=== PATIENT | female | born 1985 ===

== ENCOUNTER 2022-10-04 13:58 | Emergency (ER) | payer OTHER, SELFPAY ==
--- NOTE | ~2022-10-04 | XR_ITS ---
EXAMINATION: XR CHEST CLINICAL INFORMATION: Cough, shortness of breath COMPARISON: None TECHNIQUE: 2 views of the chest were obtained. FINDINGS: Examination at low lung volumes with some compression of parenchymal markings. Small linear atelectatic change observed in the left midlung. No pleural effusions or dominant consolidations. Pulmonary vascularity appears unremarkable. XR/XR chest 2V IMPRESSION: Small linear atelectatic changes noted left midlung. No dominant consolidations or effusions.
[2022-10-04 14:37] VITALS: BP 155/100; PULSE 102; RESP 24; TEMP 36.3; O2SAT 95; BMI 46.3
--- NOTE | 2022-10-04 14:38 | ECG_ITS ---
Test Reason : SOB Blood Pressure : / mmHG Vent. Rate : 102 BPM Atrial Rate : 102 BPM P-R Int : 134 ms QRS Dur : 076 ms QT Int : 340 ms P-R-T Axes : 051 062 032 degrees QTc Int : 443 ms Sinus tachycardia Cannot rule out Anterior infarct , age undetermined Abnormal ECG No previous ECGs available Referred By: Renita Contreras Electronically Signed By:JENNIFER BARNES
--- NOTE | 2022-10-04 14:40 | ED_ITS ---
HPI - SOB/Dyspnea General Chief Complaint: Dyspnea <DOUG Gomes - Last Filed: 10/04/22 14:43> Stated Complaint: Diff breathing/Cough <DOUG Gomes - Last Filed: 10/04/22 14:43> Time Seen by Provider: 10/04/22 20:24 <DOUG Gomes - Last Filed: 10/04/22 14:43> Source: patient <Chepe Dalton MD - Last Filed: 10/04/22 20:46> Mode of arrival: ambulatory <Chepe Dalton MD - Last Filed: 10/04/22 20:46> Limitations: no limitations <Chepe Dalton MD - Last Filed: 10/04/22 20:46> History of Present Illness HPI Narrative: 37-year-old female presents with cough, shortness of breath for 3 days. Symptoms have been getting progressively worse. She denies fever but does feel hot at night sometimes. She denies any chest pain. There is no clear relieving or exacerbating features. She does have asthma and uses a an inhaler which has been somewhat helpful but not significantly so. She has not tried any additional medications. She has a mucus production with yellow phlegm no blood. She denies any lower extremity edema, orthopnea, PND. She does describe wheezing which is moderate nature. <Chepe Dalton MD - Last Filed: 10/04/22 20:46> MD elicited complaint: shortness of breath, cough and asthma attack <Chepe Dalton MD - Last Filed: 10/04/22 20:46> Pertinent past history: asthma <Chepe Dalton MD - Last Filed: 10/04/22 20:46> Onset (ago): day(s) (3) <Chepe Dalton MD - Last Filed: 10/04/22 20:46> Timing: intermittent <Chepe Dalton MD - Last Filed: 10/04/22 20:46> Severity: moderate <Chepe Dalton MD - Last Filed: 10/04/22 20:46> Exacerbating factors: nothing <Chepe Dalton MD - Last Filed: 10/04/22 20:46> Relieving factors: bronchodilators <Chepe Dalton MD - Last Filed: 10/04/22 20:46> Known history of: asthma <Chepe Dalton MD - Last Filed: 10/04/22 20:46> Associated symptoms: cough, wheezing and sputum production <Chepe Dalton MD - Last Filed: 10/04/22 20:46> Treatment prior to arrival: bronchodilator <Chepe Dalton MD - Last Filed: 10/04/22 20:46> Related Data Home Medications: Previous Rx's Medication Instructions Recorded albuterol sulfate 90 mcg/actuation 2 puff inhalation Q4-6H PRN 10/04/22 aerosol inhaler shortness of breath or wheezing #8.5 grams azithromycin 250 mg tablet 250 mg PO DAILY 4 days #4 tabs 10/04/22 prednisone 20 mg tablet 20 mg PO DAILY #5 tabs 10/04/22 <DOUG Gomes - Last Filed: 10/04/22 14:43> Allergies/Adverse Reactions: Allergies Allergy/AdvReac Type Severity Reaction Status Date / Time No Known Allergies Allergy Verified 10/04/22 14:38 <DOUG Gomes - Last Filed: 10/04/22 14:43> Review of Systems Review of Systems: CONSTITUTIONAL: Denies weight loss, fever and chills. HEENT: Denies changes in vision and hearing. RESPIRATORY: + SOB and cough. CV: Denies palpitations no CP. GI: Denies abdominal pain, nausea, vomiting and diarrhea. : Denies dysuria and urinary frequency. MSK: Denies myalgia and joint pain. SKIN: Denies rash and pruritus. NEUROLOGICAL: Denies headache and syncope. PSYCHIATRIC: Denies recent changes in mood. Denies anxiety and depression. All other ROS are negative unless in HPI <Chepe Dalton MD - Last Filed: 10/04/22 20:46> [facility] Social History Social History: Social History Smoked in Last 30 Days: Yes Use of substances other than those prescribed or required for medical reasons: No Advance Directives: No Advance Directives Information Provided: No Patient : No <DOUG Gomes - Last Filed: 10/04/22 14:43> Physical Exam Vital Signs: Vital Signs: Last Vital Signs Temp 98.5 F 10/04/22 19:51 Pulse 90 10/04/22 19:51 Resp 24 H 10/04/22 19:51 BP 119/65 10/04/22 19:51 Pulse Ox 96 10/04/22 19:51 O2 Del Method 10/04/22 19:51 BMI result Body Mass Index 46.3 <DOUG Gomes - Last Filed: 10/04/22 14:43> Vital Signs: Last Vital Signs Temp 98.5 F 10/04/22 19:51 Pulse 90 10/04/22 19:51 Resp 24 H 10/04/22 19:51 BP 119/65 10/04/22 19:51 Pulse Ox 96 10/04/22 19:51 O2 Del Method 10/04/22 19:51 BMI result Body Mass Index 46.3 <Chepe Dalton MD - Last Filed: 10/04/22 20:46> GEN: Well developed, no acute distress, alert, oriented HEENT: Normocephalic, atraumatic, normal external ears, nose appears normal, no oropharyngeal edema or exudates Eyes: Normal to appearance Neck: Supple, no lymphadenopathy Respiratory: Talks in complete sentences, no respiratory distress, clear to auscultation bilaterally Cardiovascular: Regular rate and rhythm, no murmurs rubs or gallops Abdomen: Soft, nontender, nondistended, no guarding, no rebound Back: No CVA tenderness Extremities: No clubbing cyanosis or edema Neurologic: No focal neurologic deficits, cranial nerves 2-12 intact, strength is 5/5 bilaterally, gait normal Skin: No rash <Chepe Dalton MD - Last Filed: 10/04/22 20:46> Course Course Course Narrative: RME - 37-year-old female with history of asthma, obesity who presents to the ER for evaluation of worsening shortness of breath for the last 4 days. She reports increased coughing associated with pain in her chest and back. She reports minimal relief with her albuterol. Tachycardic 100-110 in triage, mild dyspnea. SPO2 95% with scattered inspiratory wheezes. Plan: CXR, labs, EKG, COVID swab. Needs albuterol treatment. <DOUG Gomes - Last Filed: 10/04/22 14:43> Reevaluation(s) Reevaluation #1: Torque up is complete. Chest x-ray was read by Radiology as no acute infiltrates however, I do see a small infiltrate on the left lower lobe that was approximately 1-2 cm in diameter. This could be either vascular, pneumonia, atelectasis. Patient's vital signs are good. She has nonlabored respirations. She has very slight wheezing on expiration otherwise her examination is normal. At this time, will start patient on antibiotics, steroids and also prescribed an inhaler. Patient is comfortable with this discharge plan. <Chepe Dalton MD - Last Filed: 10/04/22 20:46> Time: 20:42 <Chepe Dalton MD - Last Filed: 10/04/22 20:46> Medical Decision Making Medical Decision Making MDM Narrative: 29-year-old female with history of asthma presents with cough, phlegm, shortness of breath and wheezing. Examination revealed nauseous saturation 95% on room air. She has nonlabored respirations. Chest x-ray will be ordered, laboratory analysis will be ordered. COVID testing has also been patient appears overall well and is likely to be discharged. <Chepe Dalton MD - Last Filed: 10/04/22 20:46> Differential Diagnosis Differential Diagnoses: The differential diagnosis associated with the presentation includes (Bronchitis, pneumonia, CHF, asthma exacerbation, dyspnea) <Chepe Dalton MD - Last Filed: 10/04/22 20:46> Admission/Observation Consideration of admission/observation: Escalation of care including admission/observation considered <Chepe Dalton MD - Last Filed: 10/04/22 20:46> Lab Data [facility] Lab Attestation statement: I reviewed the patient's lab results. <Chepe Dalton MD - Last Filed: 10/04/22 20:46> Result Diagrams: 10/04/22 16:39 10/04/22 16:39 <DOUG Gomes - Last Filed: 10/04/22 14:43> Labs: Lab Results 10/04/22 10/04/22 10/04/22 Range/Units 16:39 16:39 16:39 WBC 13.9 H (4.8-10.8) X10*3/uL RBC 4.87 (4.20-5.50) X10*6/uL Hgb 13.6 (12.0-16.0) g/dl Hct 40.4 (37.0-47.0) % MCV 83.0 (80.0-98.0) fL MCH 27.9 (27.0-33.0) pg MCHC 33.7 (31.0-35.0) g/dl RDW 12.9 (11.0-16.0) % Plt Count 390 (160-400) X10*3/uL MPV 8.8 L (9.4-12.3) fL Immature Gran % (Auto) 0.6 H (0.0-0.4) % Neut % (Auto) 60.7 (45-73) % Lymph % (Auto) 31.9 (20-40) % Morrison % (Auto) 5.9 (2-11) % Eos % (Auto) 0.7 (0-4) % Baso % (Auto) 0.2 (0-2) % Lymph # (Auto) 4.4 (1.2-4.9) X10*3/uL Morrison # (Auto) 0.8 (0.1-1.2) X10*3/uL Eos # (Auto) 0.1 (0.0-0.4) X10*3/uL Baso # (Auto) 0.0 (0.0-0.2) X10*3/uL Abs Immat Gran (auto) 0.08 H (0.00-0.03) X10*3/uL Absolute Neuts (auto) 8.4 H (2.0-8.3) x10*3/uL Absolute Nucleated RBC 0.000 (0.0-0.012) X10*3/uL Nucleated RBC % (auto) 0.0 (0.0-0.2) /100WBC Sodium 138 (135-145) mmol/L Potassium 4.2 (3.3-5.1) mmol/L Chloride 105 (96-108) mmol/L Carbon Dioxide 24 (22-29) mmol/L Anion Gap 13 (12-20) BUN 13 (9-16) mg/dL Creatinine 0.76 (0.5-1.4) mg/dL Estim Creat Clear Calc 129.5 Estimated GFR > 60 Random Glucose 167 H (60-115) mg/dL Calcium 9.2 (8.4-10.2) mg/dL Magnesium 1.9 (1.6-2.6) mg/dL Total Bilirubin 0.4 (0.0-1.0) mg/dL Direct Bilirubin < 0.2 (0.0-0.5) mg/dL AST 25 (5-31) U/L ALT 14 (0-31) U/L Alkaline Phosphatase 68 (39-117) U/L Total Protein 6.9 (6.5-8.0) g/dL Albumin 4.0 (3.5-5.0) g/dL COVID-19 (SAILAJA) Negative (Negative) COVID-19 Clin Com See Note <DOUG Gomes - Last Filed: 10/04/22 14:43> Lab Results 10/04/22 10/04/22 10/04/22 Range/Units 16:39 16:39 16:39 WBC 13.9 H (4.8-10.8) X10*3/uL RBC 4.87 (4.20-5.50) X10*6/uL Hgb 13.6 (12.0-16.0) g/dl Hct 40.4 (37.0-47.0) % MCV 83.0 (80.0-98.0) fL MCH 27.9 (27.0-33.0) pg MCHC 33.7 (31.0-35.0) g/dl RDW 12.9 (11.0-16.0) % Plt Count 390 (160-400) X10*3/uL MPV 8.8 L (9.4-12.3) fL Immature Gran % (Auto) 0.6 H (0.0-0.4) % Neut % (Auto) 60.7 (45-73) % Lymph % (Auto) 31.9 (20-40) % Morrison % (Auto) 5.9 (2-11) % Eos % (Auto) 0.7 (0-4) % Baso % (Auto) 0.2 (0-2) % Lymph # (Auto) 4.4 (1.2-4.9) X10*3/uL Morrison # (Auto) 0.8 (0.1-1.2) X10*3/uL Eos # (Auto) 0.1 (0.0-0.4) X10*3/uL Baso # (Auto) 0.0 (0.0-0.2) X10*3/uL Abs Immat Gran (auto) 0.08 H (0.00-0.03) X10*3/uL Absolute Neuts (auto) 8.4 H (2.0-8.3) x10*3/uL Absolute Nucleated RBC 0.000 (0.0-0.012) X10*3/uL Nucleated RBC % (auto) 0.0 (0.0-0.2) /100WBC Sodium 138 (135-145) mmol/L Potassium 4.2 (3.3-5.1) mmol/L Chloride 105 (96-108) mmol/L Carbon Dioxide 24 (22-29) mmol/L Anion Gap 13 (12-20) BUN 13 (9-16) mg/dL Creatinine 0.76 (0.5-1.4) mg/dL Estim Creat Clear Calc 129.5 Estimated GFR > 60 Random Glucose 167 H (60-115) mg/dL Calcium 9.2 (8.4-10.2) mg/dL Magnesium 1.9 (1.6-2.6) mg/dL Total Bilirubin 0.4 (0.0-1.0) mg/dL Direct Bilirubin < 0.2 (0.0-0.5) mg/dL AST 25 (5-31) U/L ALT 14 (0-31) U/L Alkaline Phosphatase 68 (39-117) U/L Total Protein 6.9 (6.5-8.0) g/dL Albumin 4.0 (3.5-5.0) g/dL COVID-19 (SAILAJA) Negative (Negative) COVID-19 Clin Com See Note <Chepe Dalton MD - Last Filed: 10/04/22 20:46> Independent Interpretation I performed an independent interpretation of an: Plain X-Ray (Possible left lower lobe infiltrate that is discoid approxim ately 2 cm which could also be discoid atelectasis) <Chepe Dalton MD - Last Filed: 10/04/22 20:46> Radiology Impression Discussion of test interpretation with radiology: I have reviewed the radiologist's reading. (IMPRESSION: Small linear atelectatic changes noted left midlung. No dominant consolidations or effusions. Dictated By:[place]oy,ThomasSigned By:<Electronically signed by Dimitri Montano in OV>10/04/22 1549) <Chepe Dalton MD - Last Filed: 10/04/22 20:46> Independent Historian Clinical information obtained from an independent historian. History obtained from or confirmed by: Spouse <Chepe Dalton MD - Last Filed: 10/04/22 20:46> Tests considered The following testing was considered but not selected: CT scan <Chepe Dalton MD - Last Filed: 10/04/22 20:46> Prescription Management I considered prescription management with: Antibiotic <Chepe Dalton MD - Last Filed: 10/04/22 20:46> Chronic Conditions Patient?s care impacted by: Other (Asthma) <Chepe Dalton MD - Last Filed: 10/04/22 20:46> Discharge Plan Discharge Clinical Impression: Bronchitis <DOUG Gomes - Last Filed: 10/04/22 14:43> Patient Disposition: Home, Self-Care <DOUG Gomes - Last Filed: 10/04/22 14:43> Instructions: How to Use a Metered-Dose Inhaler (ED), Acute Bronchitis (ED) <DOUG Gomes - Last Filed: 10/04/22 14:43> Prescriptions: New albuterol sulfate 90 mcg/actuation HFA aerosol inhaler 2 puff inhalation Q4-6H PRN (Reason: shortness of breath or wheezing) Qty: 8.5 0RF azithromycin 250 mg tablet 250 mg PO DAILY 4 Days Qty: 4 0RF Rx Instructions: start on day 2 of therapy prednisone 20 mg tablet 20 mg PO DAILY Qty: 5 0RF <DOUG Gomes - Last Filed: 10/04/22 14:43> Print Language: Azeri <DOUG Gomes - Last Filed: 10/04/22 14:43>
--- NOTE | 2022-10-04 16:42 | MHC.EDTECH ---
pt blood drawn and covid swab collected and sent to lab .
[2022-10-04 16:45] LABS: MANUAL DIFF FLAG NO
[2022-10-04 16:46] LABS: Basophils Percent Auto 0.2 % (0-2); Eosinophils Absolute Auto 0.1 X10*3/uL (0.0-0.4); Eosinophils Percent Auto 0.7 % (0-4); Hematocrit 40.4 % (37.0-47.0); Hemoglobin 13.6 g/dl (12.0-16.0); Imm Gran Abs Auto 0.08 X10*3/uL (0.00-0.03); Imm Gran Pct Auto 0.6 % (0.0-0.4); Lymphocytes Absolute Auto 4.4 X10*3/uL (1.2-4.9); Lymphocytes Percent Auto 31.9 % (20-40); Mean Corpuscular HGB Conc 33.7 g/dl (31.0-35.0); Mean Corpuscular Hemoglobin 27.9 pg (27.0-33.0); Mean Platelet Volume 8.8 fL (9.4-12.3); Monocytes Absolute Auto 0.8 X10*3/uL (0.1-1.2); Monocytes Percent Auto 5.9 % (2-11); Neutrophils Absolute Auto 8.4 x10*3/uL (2.0-8.3); Neutrophils Percent Auto 60.7 % (45-73); Platelet Count 390 X10*3/uL (160-400); Red Blood Count 4.87 X10*6/uL (4.20-5.50); Red Cell Distribution Width 12.9 % (11.0-16.0); White Blood Count 13.9 X10*3/uL (4.8-10.8)
[2022-10-04 17:03] LABS: Alanine Aminotransferase 14 U/L (0-31); Alkaline Phosphatase 68 U/L (39-117); Anion Gap 13 (12-20); Aspartate Amino Transferase 25 U/L (5-31); Bilirubin Direct < 0.2 mg/dL (0.0-0.5); Bilirubin Total 0.4 mg/dL (0.0-1.0); Blood Urea Nitrogen 13 mg/dL (9-16); Calcium 9.2 mg/dL (8.4-10.2); Carbon Dioxide 24 mmol/L (22-29); Chloride 105 mmol/L (96-108); Creatinine Clr Calc Pharmacy 129.5; Estimated Glomerular Filt Rate > 60; Glucose Random 167 mg/dL (60-115); Magnesium 1.9 mg/dL (1.6-2.6); Potassium 4.2 mmol/L (3.3-5.1); Sodium 138 mmol/L (135-145); Total Protein 6.9 g/dL (6.5-8.0)
[2022-10-04 17:06] LABS: COVID-19 Test Negative (Negative); IDNOW Serial# 16C4AD1C
[2022-10-04 19:51] VITALS: BP 119/65; PULSE 90; RESP 24; TEMP 36.9; O2SAT 96
--- NOTE | 2022-10-04 19:53 | PC.NURSE ---
Pt aox4. Breaths are even and labored with equal chest rises. Bilateral inspiratory wheezing on auscultation. O2 sat 96% RA. RR 24. NSR on monitor with heart rate or 87. BP 119/65. Pending MD cowart. Pt aware. Will continue to monitor.
[2022-10-04] MEDS: predniSONE 20 MG TABLET 40 MG PO (20:55)
[2022-10-04] MEDS: Azithromycin 500 MG TABLET PO (20:55)
--- NOTE | 2022-10-04 20:58 | PC.NURSE ---
Discharge instructions reviewed with pt. Pt verbalizes understanding.
== END 2022-10-04 20:59 | disposition home or self-care (01) ==
PROVIDERS: Physician Assistant; Emergency Provider Emergency Medicine
DX: J40 Bronchitis, not specified as acute or chronic (principal); J45.20 Mild intermittent asthma, uncomplicated; R06.02 Shortness of breath; Z20.822 Contact with and (suspected) exposure to COVID-19
CPT/HCPCS: 71046; 80048; 80076; 83735; 85025; 87635; 93005; 99283; 99284

== ENCOUNTER 2023-02-08 07:32 | Emergency (ER) | payer OTHER, SELFPAY ==
--- NOTE | 2023-02-08 07:39 | ED_ITS ---
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 Patient states that she has been having right shoulder pain over the last couple of days and she drives for work. Patient states that the pain goes up and into her neck and down into her hand. Patient denies any dizziness, lightheadedness, abdominal pain, nausea, vomiting, fever, chills, blurry vision, double vision, loss of vision, chest pain, difficulty breathing, shortness of breath, back pain, night sweats, pain with urination, increased urinary frequency, increased urinary urgency, blood in her urine or stool, syncope or a near syncopal episode, recent trauma or falls, bowel incontinence, bladder incontinence, bowel retention, bladder retention, or any other complaints at this time. Onset (ago): day(s) Location: right and upper extremity Radiation: neck and extremity Severity: mild Severity scale (1-10): 3 Pain Consistency: intermittent Relieving factors: none Exacerbating factors: movement Associated symptoms: denies other symptoms Treatments prior to arrival: none Related Data Previous Rx's Medication Instructions Recorded albuterol sulfate 90 mcg/actuation 2 puff inhalation Q4-6H PRN 10/04/22 aerosol inhaler shortness of breath or wheezing #8.5 grams azithromycin 250 mg tablet 250 mg PO DAILY 4 days #4 tabs 10/04/22 prednisone 20 mg tablet 20 mg PO DAILY #5 tabs 10/04/22 cyclobenzaprine 5 mg tablet 5 mg PO TID PRN muscle spasm 7 02/08/23 days #21 tabs prednisone 20 mg tablet 20 mg PO DAILY 7 days #7 tabs 02/08/23 Allergies Allergy/AdvReac Type Severity Reaction Status Date / Time No Known Allergies Allergy Verified 10/04/22 14:38 Review of Systems Constitutional: Constitutional: Reports no additional constitutional complaints, Denies chills, Denies fever(s) and Denies night sweats Eyes: Eyes: Reports no additional eye complaints, Denies blurry vision, Denies change in vision, Denies diplopia, Denies eye discharge, Denies loss of vision and Denies eye pain ENT: Denies dizziness Cardiovascular: Cardiovascular: Reports no additional cardiovascular complaints, Denies chest pain, Denies lightheadedness, Denies Loss of Consciousness and Denies dyspnea Respiratory: Respiratory: Reports no additional respiratory complaints and Denies dyspnea Gastrointestinal: Gastrointestinal: Reports no additional gastrointestinal complaints, Denies abdominal pain, Denies melena, Denies hematochezia, Denies change in bowel habits and Denies change in stool character Genitourinary: Genitourinary: Denies hematuria, Denies urinary frequency, De nies dysuria, Denies urinary incontinence, Denies urinary hesitancy and Denies urinary urgency Musculoskeletal: Musculoskeletal: Reports no additional musculoskeletal complaints, Denies numbness and Denies tingling Comments: right shoulder pain Neurologic: Denies dizziness, Denies loss of vision, Denies numbness and Denies tingling Psychiatric: Psychiatric: Reports no additional psychiatric complaints Endocrine: Endocrine: Reports no additional endocrine complaints Hematologic/Lymphatic: Hematologic/Lymphatic: Reports no additional hematologic/lymphatic complaints Allergic/Immunologic: Allergic/Immunologic: Reports no additional allergic/im munologic complaints PMFSH Past Medical History Attestation statement: The following information was validated with the patient. Source: old records reviewed and nursing notes reviewed Physical Exam ED Vital Signs: Vital Signs - 24 hr 02/08/23 07:47 Temperature 98.7 F Pulse Rate 98 Respiratory Rate 18 Blood Pressure 137/81 Pulse Oximetry 96 Oxygen Delivery Method Room Air Const General: cooperative, no acute distress, alert and awake Nutritional Appearance: well nourished Orientation/consciousness: patient oriented x3 Limitations: no limitations [facility] Head: Yes normal to inspection and Yes atraumatic Ears: hearing grossly normal bilaterally and external ears normal General nose exam: Normal external nose present, no nasal discharge noted and no epistaxis Face and sinus: Yes normal facial exam, No abrasion and No laceration Mouth: Normal oral and palatal mucosa present, no drooling and no muffled voice Eyes General: appearance normal, both eyes and all related structures Periorbital: periorbital findings normal Eyelids: Yes eyelids normal Conjunctivae: conjunctivae normal Pupils: Equal, round and reactive pupils present EOM: EOMs intact bilaterally Neck Neck: Yes normal visual inspection, Yes full ROM and Yes no lymphadenopathy Chest Chest palpation & inspection: normal inspection of the chest Resp Effort & Inspection: normal respiratory effort and able to speak in complete sentences GI Inspection: Yes normal to inspection Neuro General: patient oriented x3 and moves all extremities Cranial nerves: Yes Equal, round and reactive pupils present Cognition (Neuro): normal cognition Motor exam (neuro): 5/5 motor strength present throughout Sensory Exam: Normal double simultaneous stimulation for sensation Coordination: [id number] test normal Extrem General: Yes normal to inspection, Yes full ROM and Yes capillary refill normal Psych Appearance: grossly normal Mental Status: mental status grossly normal Affect: normal affect Attitude: cooperative Thought process: Normal thought process present Thought content: Normal thought content present Insight: Good insight present (Psych) Medical Decision Making Medical Decision Making MDM Narrative: Patient is a 37 year old assigned female at with no reported medical history presenting to the emergency department today with right shoulder pain. Patient's physical exam was unremarkable. I explained my physical exam findings to the patient. I answered all questions asked by the patient. Patient received IM Toradol, PO Flexeril, and PO Prednisone which she stated helped her symptoms significantly. I stressed the importance of the patient taking her medication as prescribed. I stressed the importance of the patient following up with her primary care provider and an orthopedic provider. I stressed the importance of the patient returning to the emergency department immediately if her symptoms were to worsen or if she were to develop any dizziness, shortness of breath, difficulty breathing, chest pain, blurry vision, loss of vision, nausea, vomiting, abdominal pain, fever, chills, back pain, or any other complaints. Patient verbalized agreement and understanding with this treatment plan and discharge. Differential Diagnosis Differential Diagnoses: The differential diagnosis associated with the presentation includes Muscle spasm Shoulder pain Rotator cuff injury Muscle strain Muscle sprain Prescription Management I considered prescription management with: Pain Medication (patient was prescribed flexeril) Discharge Plan Discharge Clinical Impression: Muscle spasm Patient Disposition: Home, Self-Care Instructions: Muscle Spasm (ED) Additional Instructions: Follow up with your primary care provider and an orthopedic provider. Return to the emergency department immediately if your symptoms worsen or if you develop any dizziness, shortness of breath, difficulty breathing, chest pain, blurry vision, loss of vision, nausea, vomiting, abdominal pain, fever, chills, back pain, or any other complaints. Camilo un seguimiento con blank proveedor de atenci?n primaria y un proveedor ortop?dico. Regrese al departamento de emergencias de inmediato si daja s?ntomas empeoran o si presenta mareos, falta de aire, dificultad para respirar, dolor de pecho, visi?n borrosa, p?rdida de la visi?n, n?useas, v?mitos, dolor abdominal, fiebre, escalofr?os, dolor de espalda o cualquier otras quejas. Prescriptions: New prednisone 20 mg tablet 20 mg PO DAILY 7 Days Qty: 7 0RF cyclobenzaprine 5 mg tablet 5 mg PO TID PRN (Reason: muscle spasm) 7 Days Qty: 21 0RF No Action albuterol sulfate 90 mcg/actuation HFA aerosol inhaler 2 puff inhalation Q4-6H PRN (Reason: shortness of breath or wheezing) Qty: 8.5 0RF azithromycin 250 mg tablet 250 mg PO DAILY 4 Days Qty: 4 0RF Rx Instructions: start on day 2 of therapy prednisone 20 mg tablet 20 mg PO DAILY Qty: 5 0RF Referrals: [facility] [place] [facility] [Provider Group] (Call to establish and follow up with a primary care provider. If you already have a primary care provider, please follow up with them. Llame para establecer y hacer un seguimiento con un proveedor de atenci?n primaria. Si ya tiene un proveedor de atenci?n primaria, camilo un seguimiento con ?l.) [facility] [place] [facility] [Provider Group] (Call to establish and follow up with a primary care provider. If you already have a primary care provider, please follow up with them. Llame para establecer y hacer un seguimiento con un proveedor de atenci?n primaria. Si ya tiene un proveedor de atenci?n primaria, camilo un seguimiento con ?l.) [facility] [place] [facility] [Provider Group] (Call to establish and follow up with a primary care provider. If you already have a primary care provider, please follow up with them. Llame para establecer y hacer un seguimiento con un proveedor de atenci?n primaria. Si ya tiene un proveedor de atenci?n primaria, camilo un seguimiento con ?l.) [facility] [place] [facility] [Provider Group] (Call to establish and follow up with an orthopedic provider. Llame para establecer y hacer un seguimiento con un proveedor ortop?dico.) [place],[facility] [Physician] - (Call to establish and follow up with a primary care provider. If you already have a primary care provider, please follow up with them. Llame para establecer y hacer un seguimiento con un proveedor de atenci?n primaria. Si ya tiene un proveedor de atenci?n primaria, camilo un seguimiento con ?l.) Stand Alone Forms: Work/School Release Print Language: Danish
[2023-02-08 07:47] VITALS: BP 137/81; PULSE 98; RESP 18; TEMP 37.1; O2SAT 96
--- OUTSIDE RECORDS SUMMARY | 2023-02-08 07:59 | XMS_ITS | Continuity of Care Document ---
Author Name Unknown Organization [facility] Address [address] [place] [address]- Care Team Providers Care Broodmare Foreman Name Role Phone Not on Staff, PCP Primary Care Physician Unavail able Encounter [facility] Date(s): 07/30/22 - 08/29/[address] [address]- Patient Care team information Care Team Personnel Name: Not on Staff, PCP Position: [facility] Physician (General Medicine) Member Role: PCP
[2023-02-08 08:09] VITALS: BMI 31.1
[2023-02-08] MEDS: predniSONE 20 MG TABLET PO (08:14)
[2023-02-08] MEDS: Ketorolac Tromethamine 15 MG/ML VIAL IM (08:14)
[2023-02-08] MEDS: Cyclobenzaprine HCl 5 MG TABLET PO (08:14)
== END 2023-02-08 08:30 | disposition home or self-care (01) ==
PROVIDERS: Emergency Provider Emergency Medicine Emergency Medical Services
DX: M62.838 Other muscle spasm (principal); M25.511 Pain in right shoulder; Z79.899 Other long term (current) drug therapy
CPT/HCPCS: 96372; 99283; 99284; J1885

== ENCOUNTER 2023-08-16 19:09 | Emergency (ER) | payer OTHER, SELFPAY ==
--- NOTE | ~2023-08-16 | XR_ITS ---
EXAMINATION: XR chest 2V CLINICAL INFORMATION: Chest pain COMPARISON: No prior chest x-ray available in our system for comparison at the time of this dictation. TECHNIQUE: XR chest 2V, 2 Views Lungs and Alyssa: Both lungs are clear. Pleura: Normal. Costophrenic angles are sharp. No pneumothorax. Heart: The heart is normal in size. Mediastinum: The mediastinum is within normal limits.. Bones: Skeletal structures included are normal for patient's age. XR/XR chest 2V IMPRESSION: No radiographic evidence of acute cardiopulmonary disease.
[2023-08-16 19:14] VITALS: BP 151/85; PULSE 93; RESP 20; TEMP 37.2; O2SAT 97; BMI 48.3
--- NOTE | 2023-08-16 19:16 | ED_ITS ---
HPI - General Adult General Chief complaint: Chest Pain Stated complaint: chest pains/HBP Time Seen by Provider: 08/17/23 06:07 Related Data Previous Rx's Medication Instructions Recorded albuterol sulfate 90 mcg/actuation 2 puff inhalation Q4-6H PRN 10/04/22 aerosol inhaler shortness of breath or wheezing #8.5 grams azithromycin 250 mg tablet 250 mg PO DAILY 4 days #4 tabs 10/04/22 prednisone 20 mg tablet 20 mg PO DAILY #5 tabs 10/04/22 cyclobenzaprine 5 mg tablet 5 mg PO TID PRN muscle spasm 7 02/08/23 days #21 tabs prednisone 20 mg tablet 20 mg PO DAILY 7 days #7 tabs 02/08/23 Allergies Allergy/AdvReac Type Severity Reaction Status Date / Time No Known Allergies Allergy Verified 08/16/23 19:13 [facility] Social History Social History Smoked in Last 30 Days: No Use of substances other than those prescribed or required for medical reasons: No Advance Directives: No Advance Directives Information Provided: Yes Patient : No Physical Exam ED Vital Signs: Vital Signs - 24 hr 08/16/23 19:14 08/17/23 00:29 08/17/23 02:47 Temperature 98.9 F 98.1 F Pulse Rate 93 81 90 Respiratory Rate 20 16 18 Blood Pressure 151/85 H 122/81 109/72 Pulse Oximetry 97 96 95 Oxygen Delivery Method Room Air Room Air Room Air 08/17/23 04:47 Temperature 97.6 F Pulse Rate 93 Respiratory Rate 15 Blood Pressure 126/69 Pulse Oximetry 95 Oxygen Delivery Method Room Air BMI result Body Mass Index 48.3 Course Course Course Narrative: This is a rapid medical exam: Additional HPI, ROS, PE not included below will be deferred to primary provider. Patient is a 38-year-old female presenting to the ED with complaint of chest pain and pressure as well as palpitations since last week, becoming stronger today. Also complains of headache and elevated blood pressure. Does not take antihypertensive medications. Was seen by PCP and told she has anxiety. Plan: EKG, CXR, labs Medical Decision Making Medical Decision Making MDM Narrative: -I went to look for the patient in her room, patient had already eloped Lab Data 08/16/23 19:49 08/16/23 19:49 Labs: Lab Results 08/16/23 Range/Units 19:49 WBC 13.6 H (4.8-10.8) X10*3/uL RBC 4.84 (4.20-5.50) X10*6/uL Hgb 13.4 (12.0-16.0) g/dl Hct 40.5 (37.0-47.0) % MCV 83.7 (80.0-98.0) fL MCH 27.7 (27.0-33.0) pg MCHC 33.1 (31.0-35.0) g/dl RDW 13.0 (11.0-16.0) % Plt Count 344 (160-400) X10*3/uL MPV 8.9 L (9.4-12.3) fL Immature Gran % (Auto) 0.4 (0.0-0.4) % Neut % (Auto) 52.6 (45-73) % Lymph % (Auto) 39.3 (20-40) % [place] % (Auto) 6.3 (2-11) % Eos % (Auto) 1.1 (0-4) % Baso % (Auto) 0.3 (0-2) % Lymph # (Auto) 5.3 H (1.2-4.9) X10*3/uL [place] # (Auto) 0.9 (0.1-1.2) X10*3/uL Eos # (Auto) 0.2 (0.0-0.4) X10*3/uL Baso # (Auto) 0.0 (0.0-0.2) X10*3/uL Abs Immat Gran (auto) 0.05 H (0.00-0.03) X10*3/uL Absolute Neuts (auto) 7.1 (2.0-8.3) x10*3/uL Absolute Nucleated RBC 0.000 (0.0-0.012) X10*3/uL Nucleated RBC % (auto) 0.0 (0.0-0.2) /100WBC Smear Tech's Comments VERIFIED PT 10.8 L (11.1-13.3) SEC INR 0.9 (0.9-1.1) Sodium 137 (135-145) mmol/L Potassium 3.9 (3.3-5.1) mmol/L Chloride 104 (96-108) mmol/L Carbon Dioxide 25 (22-29) mmol/L Anion Gap 12 (12-20) BUN 16 (9-16) mg/dL Creatinine 0.84 (0.5-1.4) mg/dL Estim Creat Clear Calc 119.1 Estimated GFR > 60 Random Glucose 90 (60-115) mg/dL Calcium 9.2 (8.4-10.2) mg/dL Total Bilirubin 0.2 (0.0-1.0) mg/dL AST 21 (5-31) U/L ALT 14 (0-31) U/L Alkaline Phosphatase 60 (39-117) U/L Troponin I High Sens < 2.7 (<3.5-17.0) ng/L Total Protein 6.6 (6.5-8.0) g/dL Albumin 4.0 (3.5-5.0) g/dL Beta HCG, Quant < 2 mIU/mL Urine Color Yellow Urine Appearance Clear Urine pH 8.0 (5.0-9.0) Ur Specific [place] 1.025 (1.005-1.025) Urine Protein Negative (Neg-Trace) mg/dL Urine Glucose (UA) Negative (Negative) mg/dL Urine Ketones Negative (Negative) mg/dL Urine Blood Negative (Negative) Urine Nitrite Negative (Negative) Ur Leukocyte Esterase Trace H (Negative) Urine RBC 0-2 (0-2) /HPF Urine WBC 0-5 (0-5) /HPF Ur Squamous Epith Cells 11-20 (0-2) /HPF Urine Bacteria None Seen (None Seen) Hyaline Casts 0-2 (0-2) /LPF Discharge Plan Discharge Clinical Impression: Chest pain Patient Disposition: Elopement Prescriptions: No Action albuterol sulfate 90 mcg/actuation HFA aerosol inhaler 2 puff inhalation Q4-6H PRN (Reason: shortness of breath or wheezing) Qty: 8.5 0RF azithromycin 250 mg tablet 250 mg PO DAILY 4 Days Qty: 4 0RF Rx Instructions: start on day 2 of therapy prednisone 20 mg tablet 20 mg PO DAILY Qty: 5 0RF prednisone 20 mg tablet 20 mg PO DAILY 7 Days Qty: 7 0RF cyclobenzaprine 5 mg tablet 5 mg PO TID PRN (Reason: muscle spasm) 7 Days Qty: 21 0RF
--- NOTE | 2023-08-16 19:21 | ECG_ITS ---
Test Reason : CHEST PAIN Blood Pressure : / mmHG Vent. Rate : 089 BPM Atrial Rate : 089 BPM P-R Int : 154 ms QRS Dur : 080 ms QT Int : 354 ms P-R-T Axes : 052 061 034 degrees QTc Int : 430 ms Normal sinus rhythm Low voltage QRS Borderline ECG When compared with ECG of 04-OCT-2022 16:32, No significant change was found Referred By: Tracy Deal Electronically Signed By:JENNIFER BARNES
[2023-08-16 19:56] LABS: Basophils Percent Auto 0.3 % (0-2); Eosinophils Absolute Auto 0.2 X10*3/uL (0.0-0.4); Eosinophils Percent Auto 1.1 % (0-4); Hematocrit 40.5 % (37.0-47.0); Hemoglobin 13.4 g/dl (12.0-16.0); Imm Gran Abs Auto 0.05 X10*3/uL (0.00-0.03); Imm Gran Pct Auto 0.4 % (0.0-0.4); Lymphocytes Absolute Auto 5.3 X10*3/uL (1.2-4.9); Lymphocytes Percent Auto 39.3 % (20-40); MANUAL DIFF FLAG SCAN; Mean Corpuscular HGB Conc 33.1 g/dl (31.0-35.0); Mean Corpuscular Hemoglobin 27.7 pg (27.0-33.0); Mean Corpuscular Volume 83.7 fL (80.0-98.0); Mean Platelet Volume 8.9 fL (9.4-12.3); Monocytes Absolute Auto 0.9 X10*3/uL (0.1-1.2); Monocytes Percent Auto 6.3 % (2-11); Neutrophils Absolute Auto 7.1 x10*3/uL (2.0-8.3); Neutrophils Percent Auto 52.6 % (45-73); Platelet Count 344 X10*3/uL (160-400); Red Blood Count 4.84 X10*6/uL (4.20-5.50); SCAN SMEAR FLAG 1; White Blood Count 13.6 X10*3/uL (4.8-10.8)
[2023-08-16 19:58] LABS: Appearance Urine Clear; Color Urine Yellow; Glucose Urine UA Negative (Negative); Leukocyte Esterase Urine Trace (Negative); Nitrite Urine Negative (Negative); Specific Gravity - Urine 1.025 (1.005-1.025); UMIC TRIGGER UACC YES; Urine Blood Negative (Negative); Urine Ketones Negative (Negative); Urine Protein Negative (Neg-Trace)
[2023-08-16 20:02] LABS: INTERNATIONAL NORM RATIO 0.9 (0.9-1.1); Prothrombin Time 10.8 SEC (11.1-13.3)
[2023-08-16 20:03] LABS: Bacteria Urine None Seen (None Seen); Hyaline Casts Urine 0-2 /LPF (0-2); RBC Urine 0-2 /HPF (0-2); WBC Urine 0-5 /HPF (0-5)
[2023-08-16 20:15] LABS: Alanine Aminotransferase 14 U/L (0-31); Alkaline Phosphatase 60 U/L (39-117); Anion Gap 12 (12-20); Aspartate Amino Transferase 21 U/L (5-31); Bilirubin Total 0.2 mg/dL (0.0-1.0); Blood Urea Nitrogen 16 mg/dL (9-16); Calcium 9.2 mg/dL (8.4-10.2); Carbon Dioxide 25 mmol/L (22-29); Chloride 104 mmol/L (96-108); Creatinine Clr Calc Pharmacy 119.1; Estimated Glomerular Filt Rate > 60; Glucose Random 90 mg/dL (60-115); Potassium 3.9 mmol/L (3.3-5.1); Sodium 137 mmol/L (135-145); Total Protein 6.6 g/dL (6.5-8.0)
[2023-08-16 20:17] LABS: HCG Quantitative < 2 mIU/mL
[2023-08-16 20:18] LABS: Troponin-I High Sensitivity < 2.7 ng/L (<3.5-17.0)
[2023-08-16 20:20] LABS: SLIDE REVIEW VERIFIED
[2023-08-17 00:29] VITALS: BP 122/81; PULSE 81; RESP 16; TEMP 36.7; O2SAT 96
[2023-08-17 02:47] VITALS: BP 109/72; PULSE 90; RESP 18; O2SAT 95
[2023-08-17 04:47] VITALS: BP 126/69; PULSE 93; RESP 15; TEMP 36.4; O2SAT 95
== END 2023-08-17 06:32 | disposition left against medical advice (07) ==
PROVIDERS: Registered Nurse Emergency; Emergency Provider Emergency Medicine
DX: R07.9 Chest pain, unspecified (principal)
CPT/HCPCS: 36415; 71046; 80053; 81001; 84484; 84702; 85025; 85610; 93005; 99283; 99285

== ENCOUNTER → 2023-08-16 19:21 | Outpatient (BNV) | payer OTHER, SELFPAY | PROVIDERS: Emergency Provider Emergency Medicine; Visit Provider Internal Medicine | DX: R07.9 Chest pain, unspecified (principal) | CPT/HCPCS: 93010 ==

== ENCOUNTER 2024-10-11 10:11 | Emergency (ER) | payer MEDICAID, SELFPAY ==
--- NOTE | 2024-10-11 | ECG_ITS ---
Test Reason : CHEST PAIN Blood Pressure : */* mmHG Vent. Rate : 82 BPM Atrial Rate : 82 BPM P-R Int : 146 ms QRS Dur : 80 ms QT Int : 370 ms P-R-T Axes : 49 55 16 degrees QTcB Int : 432 ms Normal sinus rhythm Normal ECG When compared with ECG of 16-Aug-2023 19:42, No significant change was found Referred By: Generic ED Physician Electronically Signed By: JENNIFER BARNES
--- NOTE | ~2024-10-11 | XR_ITS ---
EXAMINATION: XR CHEST 2 VIEWS HISTORY: cp w sob COMPARISON: Comparison is made with the prior examination dated 08/16/2023. FINDINGS: PA and lateral views of the chest are submitted. There are low lung volumes. There is linear scarring in the left midlung. The lungs are otherwise clear. There is no pleural effusion, pneumothorax, or pulmonary vascular congestion. The heart is normal in size. The bones are intact. XR/XR chest 2V IMPRESSION: Low lung volumes. No acute cardiopulmonary abnormality. Electronically signed by: Rizwan Orr MD 10/11/2024 11:13 AM EDT
[2024-10-11 10:21] VITALS: BP 150/87; PULSE 83; RESP 18; TEMP 36.2; O2SAT 99; BMI 53.5
[2024-10-11 10:47] LABS: MANUAL DIFF FLAG NO
[2024-10-11 10:48] LABS: Basophils Percent Auto 0.3 % (0-2); Eosinophils Absolute Auto 0.2 X10*3/uL (0.0-0.4); Eosinophils Percent Auto 1.8 % (0-4); Hematocrit 39.1 % (37.0-47.0); Hemoglobin 13.1 g/dl (12.0-16.0); Imm Gran Abs Auto 0.05 X10*3/uL (0.00-0.03); Imm Gran Pct Auto 0.5 % (0.0-0.4); Lymphocytes Absolute Auto 4.4 X10*3/uL (1.2-4.9); Lymphocytes Percent Auto 40.1 % (20-40); Mean Corpuscular HGB Conc 33.5 g/dl (31.0-35.0); Mean Corpuscular Hemoglobin 28.2 pg (27.0-33.0); Mean Corpuscular Volume 84.1 fL (80.0-98.0); Mean Platelet Volume 8.8 fL (9.4-12.3); Monocytes Absolute Auto 0.7 X10*3/uL (0.1-1.2); Monocytes Percent Auto 6.6 % (2-11); Neutrophils Absolute Auto 5.6 x10*3/uL (2.0-8.3); Neutrophils Percent Auto 50.7 % (45-73); Platelet Count 396 X10*3/uL (160-400); Red Blood Count 4.65 X10*6/uL (4.20-5.50); Red Cell Distribution Width 12.5 % (11.0-16.0)
[2024-10-11 11:01] LABS: Alanine Aminotransferase 13 U/L (0-31); Albumin Level 3.8 g/dL (3.5-5.0); Alkaline Phosphatase 66 U/L (39-117); Anion Gap 11 (12-20); Aspartate Amino Transferase 21 U/L (5-31); Bilirubin Total 0.3 mg/dL (0.0-1.0); Blood Urea Nitrogen 15 mg/dL (9-16); Carbon Dioxide 24 mmol/L (22-29); Chloride 108 mmol/L (96-108); Creatinine Clr Calc Pharmacy 130.3; Estimated Glomerular Filt Rate > 60; Glucose Random 94 mg/dL (60-115); Potassium 3.8 mmol/L (3.3-5.1); Sodium 139 mmol/L (135-145); Total Protein 6.8 g/dL (6.5-8.0)
[2024-10-11 11:13] LABS: Troponin-I High Sensitivity < 2.7 ng/L (<3.5-17.0)
--- NOTE | 2024-10-11 11:30 | PC.NURSE ---
patient a&ox3, c/o mid sternal chest pain, binder operator applied, iv inserted, labs drawn, pt lungs clear-rr equal/non labored, call tavarez within reach, plan of care ongoing
--- NOTE | 2024-10-11 11:49 | ED.CHESTPAIN ---
HPI - Chest Pain General Chief Complaint: Chest Pain Stated Complaint: Chest pain Time Seen by Provider: 10/11/24 11:28 Source: patient Mode of arrival: ambulatory Limitations: no limitations History of Present Illness ED Provider: Edmond Nguyen HPI narrative: 39 yold female with pmh of DM, HTN, asthma, tachycardia and axniety presents to the ED for chest pain has been chronic for the past year, but has been exacerbating the past 5 days with moments of shortness of breath. Patient does states she has lot of stresses at home with family and every time she has explosive moments with family members or thinks about her problem the chest pain and shortness of breath gets worse. Patient does states history of anxiety and that is not seen a psychologist for a while but does have follow up with primary care for a psychologist referral. Patient denies any coughing fever or chills. Patient denies any recent long travel, recent surgery, calf pain, leg swelling, or coughing up blood. Patient denies any homicidal or suicidal thoughts. Related Data Previous Rx's ?Medication ?Instructions ?Recorded albuterol sulfate 90 mcg/actuation 2 puff inhalation Q4-6H PRN 10/04/22 aerosol inhaler shortness of breath or wheezing #8.5 grams azithromycin 250 mg tablet 250 mg PO DAILY 4 days #4 tabs 10/04/22 prednisone 20 mg tablet 20 mg PO DAILY #5 tabs 10/04/22 cyclobenzaprine 5 mg tablet 5 mg PO TID PRN muscle spasm 7 02/08/23 days #21 tabs prednisone 20 mg tablet 20 mg PO DAILY 7 days #7 tabs 02/08/23 hydroxyzine HCl 25 mg tablet 25 mg PO QID PRN anxiety 7 days 10/11/24 #28 tabs prednisone 20 mg tablet 40 mg (2 x 20 mg) PO DAILY 5 days 10/11/24 #10 tabs Allergies Allergy/AdvReac Type Severity Reaction Status Date / Time No Known Allergies Allergy Verified 10/11/24 10:31 Review of Systems Review of Systems: Chest pain, anxiety Yes all other systems are reviewed and are negative [facility] Social History Social History Smoked in Last 30 Days: Yes Use of substances other than those prescribed or required for medical reasons: No Advance Directives: No Advance Directives Information Provided: No Physical Exam Vital Signs: Vital Signs: Last Vital Signs Temp 98.1 F 10/11/24 15:38 Pulse 80 10/11/24 15:38 Resp 20 10/11/24 15:38 BP 117/77 10/11/24 15:38 Pulse Ox 98 10/11/24 15:38 O2 Del Method Room Air 10/11/24 15:38 BMI result Body Mass Index 53.5 Const: General: cooperative, healthy appearing, comfortable, no acute distress, well developed, alert and awake Orientation/consciousness: patient oriented x3 HEENT: Head: Yes normal to inspection, Yes No palpable skull fracture present, Yes normocephalic, Yes atraumatic and No abrasion Eyes: General: appearance normal, both eyes and all related structures Neck: Neck: Yes normal visual inspection, Yes full ROM, Yes no lymphadenopathy, Yes no meningeal signs, Yes trachea midline, Yes supple, No anterior neck swelling and No tender Chest: Chest palpation & inspection: normal inspection of the chest and normal palpation of entire chest wall Resp: Effort & Inspection: normal respiratory effort and able to speak in complete sentences Auscultation: clear to auscultation bilaterally Cardio: Jugular venous distension: no JVD Heart sounds: S1 normal heart sound present and S2 normal heart sound present GI: Inspection: Yes normal to inspection Palpation (GI): Soft to palpation, not firm, nontender, no guarding and not rigid : General: Yes no CVA tenderness Back/Spine/Pelvis: Back: no CVA tenderness and No back tenderness Skin: General skin exam: no rashes or lesions noted, elasticity normal and turgor normal Neuro: General: patient oriented x3, gait normal, tone normal, moves all extremities, Normal light touch and pain sensation, no meningeal signs, no focal motor deficits, CN's II-XI intact bilaterally and normal sensation to monofilament Extrem: Other: Bilateral lower extremity negative for swelling, pitting edema, calf tenderness General: Yes normal to inspection, Yes full ROM and Yes capillary refill normal Psych: Appearance: grossly normal, well kempt and not disheveled Medications Administered Discontinued Medications Generic Name Dose Route Start Last Admin Trade Name Freq PRN Reason Stop Dose Admin Albuterol Sulfate 2.5 mg/ 0 mg 10/11/24 13:44 10/11/24 13:47 Albuterol/Ipratropium 3 ml INHALE 10/11/24 13:45 1 dose ONCE ONE Administration Medical Decision Making Medical Decision Making [facility] Narrative: 39 yold female presents to the ED for chest pain exacerbation for the past 5 days with SOB. Patient has pmh of DM, HTN, and anxiety. Patient states lots of stressors at home exacerbation chest pain. Patient denies any leg swelling calf pain. Most likely this is anxiety related but due to medical history will do cardiac evaluation. 1:27pm: O2 saturation on ambulatory test is between 98-100% on room air. Patient has 2 troponins negative. BNP negative. D-dimer negative. Perc score is 0. Chest x-ray negative pneumonia. Patient is not suicidal or homicidal. Patient informed to follow-up with primary care for a psychologist referral. Patient will be given information for care team. Lungs has slight wheezing. ED bronchodilator ordered and than patient will be disfharged. 2:41pm: Patient will be discharged with Atarax for anxiety. Patient explained worrisome signs and informed to return to the ED immediately. Patient is smiling and eating food. Not suspecting pericarditis, myocarditis, [place], CHF, PE, pneumothorax, hemothorax, pneumonia, or any other concernin etiologies Differential Diagnosis Differential Diagnoses: The differential diagnosis associated with the presentation includes ([place], CHF, pneumonia) Admission/Observation Consideration of admission/observation: Escalation of care including admission/observation considered Lab Data [facility] Lab Attestation statement: I reviewed the patient's lab results. 10/11/24 10:40 10/11/24 10:40 Labs: Lab Results 10/11/24 10/11/24 Range/Units 10:40 12:33 WBC 11.0 H (4.8-10.8) X10*3/uL RBC 4.65 (4.20-5.50) X10*6/uL Hgb 13.1 (12.0-16.0) g/dl Hct 39.1 (37.0-47.0) % MCV 84.1 (80.0-98.0) fL MCH 28.2 (27.0-33.0) pg MCHC 33.5 (31.0-35.0) g/dl RDW 12.5 (11.0-16.0) % Plt Count 396 (160-400) X10*3/uL MPV 8.8 L (9.4-12.3) fL Immature Gran % (Auto) 0.5 H (0.0-0.4) % Neut % (Auto) 50.7 (45-73) % Lymph % (Auto) 40.1 H (20-40) % [place] % (Auto) 6.6 (2-11) % Eos % (Auto) 1.8 (0-4) % Baso % (Auto) 0.3 (0-2) % Lymph # (Auto) 4.4 (1.2-4.9) X10*3/uL [place] # (Auto) 0.7 (0.1-1.2) X10*3/uL Eos # (Auto) 0.2 (0.0-0.4) X10*3/uL Baso # (Auto) 0.0 (0.0-0.2) X10*3/uL Abs Immat Gran (auto) 0.05 H (0.00-0.03) X10*3/uL Absolute Neuts (auto) 5.6 (2.0-8.3) x10*3/uL Absolute Nucleated RBC 0.000 (0.0-0.012) X10*3/uL Nucleated RBC % (auto) 0.0 (0.0-0.2) /100WBC ESR Cancelled PT 11.1 (10.9-12.4) SEC INR 1.0 (0.9-1.1) APTT 32.4 (26.0-36.8) SEC D-Dimer High Sensitivty < 150 NG/ML Sodium 139 (135-145) mmol/L Potassium 3.8 (3.3-5.1) mmol/L Chloride 108 (96-108) mmol/L Carbon Dioxide 24 (22-29) mmol/L Anion Gap 11 L (12-20) BUN 15 (9-16) mg/dL Creatinine 0.67 (0.5-1.4) mg/dL Estim Creat Clear Calc 130.3 Estimated GFR > 60 Random Glucose 94 (60-115) mg/dL Calcium 9.0 (8.4-10.2) mg/dL Total Bilirubin 0.3 (0.0-1.0) mg/dL AST 21 (5-31) U/L ALT 13 (0-31) U/L Alkaline Phosphatase 66 (39-117) U/L Troponin I High Sens < 2.7 < 2.7 (<3.5-17.0) ng/L B-Natriuretic Peptide 14 (<100) pg/mL Total Protein 6.8 (6.5-8.0) g/dL Albumin 3.8 (3.5-5.0) g/dL Independent Interpretation I performed an independent interpretation of an: EKG (Negative) and Plain X-Ray Independent Historian Clinical information obtained from an independent historian. History obtained from or confirmed by: Other (Patient) Prescription Management I considered prescription management with: Other Discharge Plan Discharge Clinical Impression: Atypical chest pain, Anxiety, Asthma Patient Disposition: Home, Self-Care Instructions: Chest Pain (ED), Asthma (ED), Anxiety (ED) Additional Instructions: Recommend follow-up with your primary care provider. Also recommend referral to therapist/psychiatrist. Return to ED immediately for any coughing up blood, chest pain on inspiration, leg swelling, calf pain, fever, chills, syncopal episode, suicidal, homicidal ideation.. EKG blood work and x-ray came back reassuring. Keep Using Albuterol Inhaler as needed. Prescriptions: New hydroxyzine HCl 25 mg tablet 25 mg PO QID PRN (Reason: anxiety) 7 Days Qty: 28 0RF prednisone 20 mg tablet 40 mg PO DAILY 5 Days Qty: 10 0RF No Action albuterol sulfate 90 mcg/actuation HFA aerosol inhaler 2 puff inhalation Q4-6H PRN (Reason: shortness of breath or wheezing) Qty: 8.5 0RF azithromycin 250 mg tablet 250 mg PO DAILY 4 Days Qty: 4 0RF Rx Instructions: start on day 2 of therapy prednisone 20 mg tablet 20 mg PO DAILY Qty: 5 0RF prednisone 20 mg tablet 20 mg PO DAILY 7 Days Qty: 7 0RF cyclobenzaprine 5 mg tablet 5 mg PO TID PRN (Reason: muscle spasm) 7 Days Qty: 21 0RF Referrals: [facility] [Provider Group] (Anxiety) Stand Alone Forms: Work/School Release Interventions: ED Discharge Assessment Last Done: 10/11/24 15:38 Discharge Date/Time: 10/11/24 15:39 Print Language: [place]
[2024-10-11 12:42] LABS: B Type Natriuretic Peptide 14 pg/mL (<100)
[2024-10-11 12:48] LABS: Prothrombin Time 11.1 SEC (10.9-12.4)
[2024-10-11 12:51] LABS: Partial Thromboplastin Time 32.4 SEC (26.0-36.8)
[2024-10-11 12:57] LABS: D Dimer High Sensitivity < 150 NG/ML
[2024-10-11 13:00] LABS: Troponin-I High Sensitivity < 2.7 ng/L (<3.5-17.0)
[2024-10-11 13:01] VITALS: BP 120/79; PULSE 69; RESP 12; TEMP 36.4; O2SAT 98
[2024-10-11] MEDS: Albuterol Sulfate 2.5 MG, Albuterol/Iprat 2.5/0.5MG 3 ML 3 ML INHALE (13:47)
[2024-10-11 13:49] VITALS: PULSE 79; RESP 18
--- OUTSIDE RECORDS SUMMARY | 2024-10-11 14:14 | XMS_ITS ---
Author Organization [facility] Address [address] [address] Care Team Providers Care Chief Minister Name Role Phone Jesús MenardP-C Primary Care Provider [phone] [id number] Status:Enrolled (Active) Start date:07/05/2024 Enrollment date:07/05/2024 Case Team Name Relationship Phone Yonis Conde PharmD (Responsible Staff) [phone] Continued Care and Services Coordination
--- OUTSIDE RECORDS SUMMARY | 2024-10-11 14:14 | XMS_ITS | Clinical Summary ---
Author Organization [facility] Address [address] [place] [address] Care Team Providers Care Service Correspondent Name Role Phone Jesús MenardP-Fabrizio Primary Care Provider [phone] Source Comments PLEASE NOTE, if this patient is a minor, it may be UNLAWFUL to discuss sensitive information that is contained in these records (such as FAMILY PLANNING, MENTAL HEALTH or SUBSTANCE ABUSE) with the minor patient's parent or other person without the patient's specific authorization.[facility] Allergies No known active allergies Medications inhalational spacing deviceIndicatio ns:SOB (shortness of breath) Use with inhaler 1 Each 3 Active acetaminophen (TYLENOL) 500 mg tabletIndicatio ns:Midline low back pain without sciatica, unspecified chronicity Take 1 Tablet by mouth every 6 (six) hours as needed for pain 60 Tablet 2 3 Active diclofenac sodium (VOLTAREN) 1 % gelIndications: Chronic bilateral low back pain with bilateral sciatica Apply 2 g topically 2 (two) times daily 100 g 1 4 Active tiotropium bromide (SPIRIVA RESPIMAT) 1.25 mcg/actuation mistIndications :Moderate persistent asthma, unspecified whether complicated Inhale 2 Puffs into the lungs daily. 4 g 1 4 Active albuterol HFA 90 mcg/actuation inhalerIndicati ons:Moderate persistent asthma, unspecified whether complicated Inhale 2 Puffs into the lungs every 6 (six) hours as needed for shortness of breath 18 g 2 4 Active metoprolol succinate XL (TOPROL-XL) 25 mg 24 hr tabletIndicatio ns:Palpitations ,Recurrent headache Take 1 Tablet by mouth once daily 90 Tablet 1 4 Active varenicline (CHANTIX STARTING MONTH ) 0.5 mg (11)- 1 mg (42) tabletIndicatio ns:Tobacco dependence USE DIRECTED 53 Tablet 1 4 Active budesonide-form oteroL (SYMBICORT) 160-4.5 mcg/actuation inhalerIndicati ons:SOB (shortness of breath) INHALE 2 PUFFS INTO THE LUNGS TWICE A DAY 10.2 g 2 5 Active metFORMIN XR (GLUCOPHAGE-XR) 500 mg 24 hr tabletIndicatio ns:Pre-diabetes TAKE 1 TABLET BY MOUTH ONCE DAILY WITH DINNER 90 Tablet 1 5 Active gabapentin (NEURONTIN) 300 mg capsuleIndicati ons:Chronic bilateral low back pain with bilateral sciatica Take 1 Capsule by mouth 3 (three) times daily 90 Capsule 5 Active phentermine (ADIPEX-P) 37.5 mg tabletIndicatio ns:Obesity, Class III, BMI 40-49.9 (morbid obesity) ([facility]),Encou nter for weight management Take 1 Tablet by mouth every morning before breakfast 30 Tablet 5 Active phentermine (ADIPEX-P) 37.5 mg tabletIndicatio ns:Obesity, Class III, BMI 40-49.9 (morbid obesity) ([facility]),Encou nter for weight management Take 1 Tablet by mouth every morning before breakfast 30 Tablet 5 10/12/19 25 Discontinu ed(Reorder (E-Cancel Not Sent)) Active Problems Problem Noted Date Diagnosed Date Chronic bilateral low back pain with bilateral s ciatica 09/06/2024 Obesity, Class III, BMI 40-49.9 (morbid obesity) ([facility]) 09/06/2024 Moderate persistent asthma 07/05/2024 Pre-diabetes 05/28/2023 Borderline hypertension 05/28/2023 Adjustment disorder with mixed anxiety and depre ssed mood 01/15/2014 Syphilis in female: sp treatment around 10/2013 Overview (01/02/2014): Dory Aguilar is a 28 year old female Says was treated with 2 injections of PNC in [place] around 2008 Her test are still positive She is asymptomatic Obese 11/22/2013 Resolved Problems Problem Noted Date Diagnosed Date Resolved Date Hypothyroidism 11/22/2013 09/06/2024 Overview (11/22/2013): She was Dx in childhood, she stopped treatment a while ago, then was told did not have it??? Encounters Date Type Department Care Team Description 09/06/2024 5:00 PM EST Telemedicine Visit [address] [address] Jesús Menard FNP-C Hernandez, Maria C Routine general medical examination at a health care facility (Primary Dx); Moderate persistent asthma without complication; Encounter for screening mammogram for malignant neoplasm of breast; Irregular periods; Chronic bilateral low back pain with bilateral sciatica; Obesity, Class III, BMI 40-49.9 (morbid obesity) ([facility]); Encounter for weight management; Pre-diabetes; Borderline hypertension 08/09/2024 4:00 PM EST Office Visit [address] [address] Yonis Owusu, PharmD Moderate persistent asthma without complication (Primary Dx) 08/09/2024 Travel from Last 3 Months Immunizations Name Administration Dates Next Due COVID-19,SARS-COV-2 VACCINE, UNSPECIFIED (US Admin) 10/18/2021 Flu, Preservative Free 10/21/2022 INFLUENZA, SEASONAL, INJECTA BLE, PRESERVATIVE FREE 05/03/2024 Moderna COVID-19 Vaccine, re d cap blue label, 12+ Primary Series 02/25/2022,12/17/2021,02/25/2021,2020 PNEUMOCOCCAL CONJUGATE PCV 2 0 (Prevnar) 10/15/2022 TDAP 10/15/2022 Family History Medical History Relation Name Comments Nervous System Disorders Brother 1 epi lepsy Diabetes Mellitus II Daughter 1 Hypertension Father Thyroid Disease Father Diabetes Mellitus II Maternal Grandfather Cancer Maternal Grandmother Diabetes Mellitus II Maternal Grandmother Cervical Cancer Mother Diabetes Mother Hypertension Mother Thyroid Disease Mother Relation Name Status Comments Brother 1 Alive Brother 2 Alive Daughter 1 Alive Daughter 2 Alive Father Alive Maternal Grandfather Maternal Grandmother Mother Alive Son Alive Social History Tobacco Use Types Packs/Day Years Used Date Smoking Tobacco: Every Day Cigarettes 0.2 11 Tobacco Cessation:Ready to Q uit: Not Asked; Counseling Given: Not Answered Comments:1 in morning and 1 at night. Started when 15 years old. 2 packs a day for 7-8 years Alcohol Use Standard Drinks/Week Comments No 0 (1 standard drink = 0.6 oz pur e alcohol) Social Connections Answer Date Recorded Connectedness 0 04/06/2024 Financial Resource Strain Answer Date R ecorded Financial Resource Strain 0 2022 Stress Answer Date Recorded Stress 0 10/15/2022 Physical Activity Answer Date Recorded Physical Activity 0 10/15/2022 Food Insecurity Answer Date Recorded Food 0 04/26/2024 Transportation Needs Answer Date Record ed Transportation 0 10/15/2022 Housing Stability Answer Date Recorded Housing 0 10/15/2022 Safety and Environment Answer Date Sergio rded Safety 1 05/17/2024 Utilities Answer Date Recorded Utilities 0 10/15/2022 Employment Answer Date Recorded Stress 0 10/15/2022 Comments No Sex and Gender Information Value Date Recorded Sex Assigned at Female 10/15/2022 3:43 PM PDT Legal Sex Female 6:13 AM PST Gender Identity Female 10/15/2022 3:43 PM PDT Sexual Orientation Straight 10/15/2022 3: 43 PM PDT Last Filed Vital Signs Vital Sign Reading Time Taken Comments Blood Pressure 120/80 07/05/2024 9:55 AM EST Pulse 88 07/05/2024 9:55 AM EST Temperature 36.5 ??C (97.7 ??F) 07/05/2024 9:55 AM ES T Respiratory Rate 18 07/05/2024 9:55 AM EST Oxygen Saturation 98% 07/05/2024 9:55 AM EST Inhaled Oxygen Concentration - - Weight 118.8 kg (262 lb) 07/05/2024 9:55 AM EST Height 160 cm (5' 3 ) 07/05/2024 9:55 AM EST Body Mass Index 46.41 07/05/2024 9:55 AM EST Plan of Treatment Upcoming Encounters Date Type Department Care Team (Late st Contact Info) Description 10/11/2024 4:00 PM EDT Office Visit [facility] [address] [place] [address] Yonis Owusu, PharmD [address] [place] [address] Health Maintenance Due Date Last Done Comments HPV Screening 1984 Breast Cancer Screening (Mammogram) 11/17/2023 11/16/2022 Lpi-NNAZG-48 ( season) 2024 02/25/2022, 12/17/2021, 10/18/2021, Additional history exists Postponed from 04/01/2024 (Patient postponement) Imm-Hepatitis B (1 of 3 - 19+ 3-dose series) 12/04/2024 Postponed from 2003 (Patient postponement) Relationship Safety Screening/Counseling 05/17/2025 05/17/2024, 10/15/2022 Hypertension Screening (#1) 07/05/2025 Tobacco Cessation Counseling (#1) 07/19/2025 05/27/2023, 10/15/2022, 11/30/2013 Annual Preventive Care Visit 09/06/2025 09/06/2024, 10/28/2022, 10/15/2022, Additional history exists Diabetes Screening 09/12/2025 09/12/2024, 0 09/12/2024, 10/15/2022, Additional history exists Syphilis Screening 09/12/2025 09/12/2024, 0 10/15/2022, 10/15/2022, Additional history exists Pap Smear 10/27/2025 10/27/2022 Lipid Screening 09/12/2027 09/12/2024, 09/29, 11/26/2013 Cervical Cancer Screening 10/28/2027 Pap + HPV 10/28/2027 10/28/2022, 10/27/2022 Imm-DTaP/Tdap/Td (2 - Td or Tdap) 10/15/2032 10/15/2022 HIV Screening Completed 10/15/2022, 11/26/2013 Hepatitis C Screening Completed 10/15/2022 , 02/19/2016, 11/26/2013 Imm-Pneumococcal Completed 10/15/2022 Imm-Influenza Completed 05/03/2024, 10/21/2022 Alcohol and Drug Screen Completed 09/06/19, 09/30/2023, 10/15/2022 Depression Annual Screen Completed 09/06/2024, 0308/2023 Cervical Ablation/Cold-Knife Conization Discontinued Cervical Cryotherapy Discontinued Colposcopy Discontinued Endometrial Biopsy Discontinued Excision/Leep Discontinued HPV Genotyping Discontinued Vaginal Pap Discontinued Vulvoscopy Discontinued Procedures Procedure Name Priority Date/Time Associated Diagnosis Comments RPR (MONITOR) W/REFL TITER Routine 09/12/2024 1:18 PM EST Routine general medical examination at a health care facility HEMOGLOBIN GLYCOSYLATED A1C Routine 09/12/2024 1:18 PM EST Routine general medical examination at a health care facility LIPID PANEL Routine 09/12/2024 1:18 PM EST Routine general medical examination at a health care facility THYROID CASCADING REFLEX PANEL Routine 09/12/2024 1:18 PM EST Routine general medical examination at a health care facility COMPREHENSIVE METABOLIC PANEL Routine 09/12/2024 1:18 PM EST Routine general medical examination at a health care facility BLOOD COUNT COMPLETE AUTO&AUTO DIFRNTL WBC Routine 09/12/2024 1:18 PM EST Routine general medical examination at a health care facility REFERRAL FOR MAMMOGRAM Routine 11/16/2022 3:00 AM EDT Screening mammogram for breast cancer THINPREP PAP & HPV MRNA E6/E7 RFLX HPV 16,18/[address]/NG Routine 10/27/2022 8:00 PM EDT Encounter for Papanicolaou smear of vagina as part of routine gynecological examination Encounter for screening for human papillomavirus (HPV) HIV 1/2 AG & AB W/RFLX (4TH GEN) Routine 10/15/2022 3:27 PM EDT Concern about STD in female without diagnosis HEPATITIS C AB W/RFLX HCV RNA, QT, RT PCR Routine 10/15/2022 3:27 PM EDT Concern about STD in female without diagnosis from Last 3 Months or Most Recently Relevant to Health Maintenance Results * THYROID CASCADING REFLEX PANEL (09/12/2024 1:18 PM EST) TSH 3.06 0.40 - 4.50 mIU/L [facility] Comment: ?Reference Range ?> or = 20 Years ??0.40-4.50 ? Ranges ?First trimester ?0.26-2.66 ?Second trimester ?? 0.55-2.73 ?Third trimester ?0.43-2.91 Blood Blood / Unknown 09/12/2024 1 :18 PM EST 09/12/2024 1:18 PM EST Jesús MORAN-C LAB - BLOOD DRAW Edited R esult - Final [facility] [address] [address], [facility] [address] [address] * RPR (MONITOR) W/REFL TITER (09/12/2024 1:18 PM EST) RPR (MONITOR) W/REFL TITER NON-REACT SHALINI NON-REACT SHALINI [facility] Blood Blood / Unknown 09/12/2024 1 :18 PM EST 09/12/2024 1:18 PM EST Jesús ROMOP-C LAB - BLOOD DRAW Final Re sult [facility] [address] [address], [facility] [address] [place] [address] * (ABNORMAL) BLOOD COUNT COMPLETE AUTO&AUTO DIFRNTL WBC (09/12/2024 1:18 PM EST) WHITE BLOOD CELL COUNT 11.5(H) 3.8 - 10.8 Thousand/ uL [facility] RED BLOOD CELL COUNT 4.71 3.80 - 5.10 Million/u L [facility] HEMOGLOBIN 13.5 11.7 - 15.5 g/dL [facility] HEMATOCRIT 41.7 35.0 - 45.0 % [facility] MCV 88.5 80.0 - 100.0 fL [facility] MCH 28.7 27.0 - 33.0 pg [facility] MCHC 32.4 32.0 - 36.0 g/dL [facility] Comment: For adults, a slight decrease in the calculated MCHC value (in the range of 30 to 32 g/dL) is most likely not clinically significant; however, it should be interpreted with caution in correlation with other red cell parameters and the patient's clinical condition. RDW 12.0 11.0 - 15.0 % [facility] PLATELET COUNT 457(H) 140 - 400 Thousand/ uL [facility] MPV 9.6 7.5 - 12.5 fL [facility] ABSOLUTE NEUTROPHILS 5,578 1,500 - 7,800 cells/uL [facility] ABSOLUTE LYMPHOCYTES 4,934(H) 850 - 3,900 cells/uL [facility] ABSOLUTE MONOCYTES 667 200 - 950 cells/uL [facility] ABSOLUTE EOSINOPHILS 288 15 - 500 cells/uL [facility] ABSOLUTE BASOPHILS 35 0 - 200 cells/uL [facility] NEUTROPHILS PCT 48.5 % [facility] LYMPHOCYTES 42.9 % [facility] MONOCYTES 5.8 % [facility] EOSINOPHILS 2.5 % [facility] BASOPHILS 0.3 % [facility] Blood Blood / Unknown 09/12/2024 1 :18 PM EST 09/12/2024 1:18 PM EST us Jesús Menard MEDICARE INTERVIEWER-C LAB - BLOOD DRAW Edited [facility] - Final Performing Organization Address [facility]/ZIP Co de Phone Number [facility] [address] [address], [facility] [address] [address] * (ABNORMAL) HEMOGLOBIN GLYCOSYLATED A1C (09/12/2024 1:18 PM EST) HEMOGLOBIN A1C 5.9(H) <5.7 % of total Hgb [facility] Comment: For someone without known diabetes, a hemoglobin A1c value between 5.7% and 6.4% is consistent with prediabetes and should be confirmed with a follow-up test. For someone with known diabetes, a value <7% indicates that their diabetes is well controlled. A1c targets should be individualized based on duration of diabetes, age, comorbid conditions, and other considerations. This assay result is consistent with an increased risk of diabetes. Currently, no consensus exists regarding use of hemoglobin A1c for diagnosis of diabetes for children. Blood Blood / Unknown 09/12/2024 1 :18 PM EST 09/12/2024 1:18 PM EST us Jesús ROMOP-C LAB - BLOOD DRAW Edited [facility] Performing Organization Address [facility] Co de Phone Number [facility] [address] [address], [facility] [address] [address] * (ABNORMAL) LIPID PANEL (09/12/2024 1:18 PM EST) CHOLESTEROL, TOTAL 188 <200 mg/dL [facility] HDL CHOLESTEROL 53 > OR = 50 mg/dL [facility] TRIGLYCERIDES 119 <150 mg/dL [facility] LDL-CHOLESTEROL 112(H) 99 mg/dL (calc) [facility] Comment: Reference range: <100 Desirable range <100 mg/dL for primary prevention; ?? <70 mg/dL for patients with CHD or diabetic patients with > or = 2 CHD risk factors. LDL-C is now calculated using the Gurmeet-Phelps calculation, which is a validated novel method providing better accuracy than the Friedewald equation in the estimation of LDL-C. Gurmeet HERNÁNDEZ et al. SUE. 2013;310(19): 2133-6365 (http://education.Gullivearth/faq/KGW655) CHOL/HDLC RATIO 3.5 <5.0 (calc) [facility] NON-HDL CHOLESTEROL 135(H) <130 mg/dL (calc) [facility] Comment: For patients with diabetes plus 1 major ASCVD risk factor, treating to a non-HDL-C goal of <100 mg/dL (LDL-C of <70 mg/dL) is considered a therapeutic option. Blood Blood / Unknown 09/12/2024 1 :18 PM EST 09/12/2024 1:18 PM EST Jesús Menard MEDICARE INTERVIEWER-C LAB - BLOOD DRAW Final Re sult [facility] [address] [place] [address], [facility] [address] [place] [address] * COMPREHENSIVE METABOLIC PANEL (09/12/2024 1:18 PM EST) [facility] GLUCOSE 93 65 - 99 mg/dL [facility] Comment: ?Fasting reference interval UREA NITROGEN (BUN) 11 7 - 25 mg/dL [facility] CREATININE (blood) 0.69 0.50 - 0.99 mg/dL [facility] EGFR 112 > OR = 60 mL/min/1. 73m2 [facility] BUN/CREATININE RATIO SEE NOTE: [facility] Comment: ?? Not Reported: BUN and Creatinine are within ?? reference range. ? SODIUM 137 135 - 146 mmol/L [facility] POTASSIUM 4.3 3.5 - 5.3 mmol/L [facility] CHLORIDE 101 98 - 110 mmol/L [facility] CARBON DIOXIDE 30 20 - 32 mmol/L [facility] CALCIUM 9.7 8.6 - 10.2 mg/dL [facility] PROTEIN, TOTAL 6.6 6.1 - 8.1 g/dL [facility] ALBUMIN 4.2 3.6 - 5.1 g/dL [facility] GLOBULIN 2.4 1.9 - 3.7 g/dL (calc) [facility] ALBUMIN/GLOBULI N RATIO 1.8 1.0 - 2.5 (calc) [facility] BILIRUBIN, TOTAL 0.4 0.2 - 1.2 mg/dL [facility] ALKALINE PHOSPHATASE 64 31 - 125 U/L [facility] AST 20 10 - 30 U/L [facility] ALT 12 6 - 29 U/L [facility] Blood Blood / Unknown 09/12/2024 1 :18 PM EST 09/12/2024 1:18 PM EST Jesús Menard MEDICARE INTERVIEWER-C LAB - BLOOD DRAW Edited R esult - Final [facility] [address] [address], [facility] [address] [address] * REFERRAL FOR MAMMOGRAM (11/16/2022 3:00 AM EDT) 11/16/2022 3:00 AM EDT Adebayo Brock MD IMG RFL MAMMO Edited Result - Final * THINPREP PAP & HPV MRNA E6/E7 RFLX HPV 16,18/[address]/NG (10/27/2022 8:00 PM EDT) CHLAMYDIA TRACHOMATIS RNA, TMA NOT DETECTED NOT DETECTED [facility] NEISSERIA GONORRHOEAE RNA, TMA NOT DETECTED NOT DETECTED [facility] COMMENT [facility] CLINICAL INFORMATION See Note [facility] Comment:Routine exam LMP See Note [facility] Comment:10/06/22 PREV. PAP See Note [facility] Comment:NONE GIVEN PREV. BX See Note [facility] Comment:NONE GIVEN SOURCE See Note [facility] Comment:Cervix STATEMENT OF ADEQUACY See Note [facility] Comment: Satisfactory for evaluation. Endocervical/transformation zone component absent. INTERPRETATION/RESU LT See Note [facility] Comment:Negative for intraep ithelial lesion or malignancy. INFECTION See Note [facility] Comment: Shift in vaginal kobe suggestive of bacterial vaginosis. HANDY MAN See Note [facility] Comment: KR, CT(ASCP) CT screening location: [address] ??[id number] COMMENT [facility] HPV MRNA E6/E7 Not Detected Not Detected [facility] Comment: Methodology: Completions Manager-Mediated Amplification This assay detects E6/E7 viral messenger RNA (mRNA) from 14 high-risk HPV types (16,18,31,33,35,39,45,51,52,56,58,59,66,68). Cervical sources are required for HPV testing. If a vaginal source from a patient who has had a total hysterectomy with removal of cervix was submitted, please contact the testing laboratory for alternative testing options. For additional information, please refer to http://Digital Shadows.Vortal/faq/MAJ322f7 (This link if provided for information/ educational purposes only.) CYTOLOGY Cervix uteri structure / Unknown 10/27/2022 8:00 PM EDT 10/29/2022 11:46 AM EDT Narrative Diana - 11/02/2022 3:20 PM EDT EXPLANATORY NOTE: The Pap is a screening test for cervical cancer. It is not a diagnostic test and is subject to false negative and false positive results. It is most reliable when a satisfactory sample, regularly obtained, is submitted with relevant clinical findings and history, and when the Pap result is evaluated along with historic and current clinical information. The analytical performance characteristics of this assay, when used to test SurePath(TM) specimens have been determined by [facility]. The modifications have not been cleared or approved by the FDA. This assay has been validated pursuant to the CLIA regulations and is used for clinical purposes. For additional information, please refer to https://Digital Shadows.Vortal/faq/BFJ692 (This link is being provided for information/ educational purposes only.) us Adebayo Brock MD LAB - NO BLOOD DRAW Final Result [facility] [address] [address], [facility] [address] [place] [address] * HEPATITIS C AB W/RFLX HCV RNA, QT, RT PCR (10/15/2022 3:27 PM EDT) HEPATITIS C ANTIBODY NON-REACT SHALINI NON-REACT SHALINI [facility] SIGNAL TO CUT-OFF 0.04 <1.00 [facility] Comment: HCV antibody was non-reactive. There is no laboratory evidence of HCV infection. In most cases, no further action is required. However, if recent HCV exposure is suspected, a test for HCV RNA (test code 20395) is suggested. For additional information please refer to http://education.Vortal/faq/WOF20s3 (This link is being provided for informational/ educational purposes only.) Blood Blood / Unknown 10/15/2022 3 :27 PM EDT 10/15/2022 3:28 PM EDT Jesús Menard MEDICARE INTERVIEWER-C LAB - BLOOD DRAW Edited R esult - Final [facility] [address] [address], [facility] [address] [place] [address] * HIV 1/2 AG & AB W/RFLX (4TH GEN) (10/15/2022 3:27 PM EDT) Pathologist [facility] HIV AG/AB, 4TH GEN NON-REAC TIVE NON-REAC TIVE [facility] Comment: HIV-1 antigen and HIV-1/HIV-2 antibodies were not detected. There is no laboratory evidence of HIV infection. PLEASE NOTE: This information has been disclosed to you from records whose confidentiality may be protected by state law. ??If your state requires such protection, then the state law prohibits you from making any further disclosure of the information without the specific written consent of the person to whom it pertains, or as otherwise permitted by law. A general authorization for the release of medical or other information is NOT sufficient for this purpose. ?? For additional information please refer to http://education.Golfsmith.ETHERA/faq/VUU719 (This link is being provided for informational/ educational purposes only.) The performance of this assay has not been clinically validated in patients less than 2 years old. Blood Blood / Unknown 10/15/2022 3 :27 PM EDT 10/15/2022 3:28 PM EDT Jesús MORAN-Fabrizio LAB - BLOOD DRAW Final Re sult [facility] [address] [address], [facility] [address] [address] from Last 3 Months or Most Recently Relevant to Health Maintenance Care Teams Service Correspondent Relationship Specialty Start Date End Date Jesús Menard FNP-C [address] [place] [address] PCP - General Internal Medicine 11/02/22
--- OUTSIDE RECORDS SUMMARY | 2024-10-11 14:14 | XMS_ITS | Clinical Summary ---
Author Organization [facility] Address [address] [place] [address] Phone Care Team Providers Care Manager Photography Name Role Phone Physician, No Pcp Primary Care Provider Unavaila ble Social History Tobacco Use Types Packs/Day Years Used Date Smoking Tobacco: Never Assessed Comments Unknown Sex and Gender Information Value Date Recorded Sex Assigned at Not on file Legal Sex Female 2:47 PM EDT Gender Identity Not on file Sexual Orientation Not on file Plan of Treatment Health Maintenance Due Date Last Done Comments Breast Cancer Screening 1984 Hepatitis A Vaccines (1 of 2 - Risk 2-dose series) 2003 Hepatitis B Vaccines (1 of 3 - 19+ 3-dose series) 2003 Cervical Cancer Screening: Pap Smear 2005 COVID-19 Vaccine ( season) 2024 02/25/2022, 12/17/2021, 10/18/2021, Additional history exists Influenza Vaccine (#1) 2024 10/21/2022 HIV Screening 05/23/2024 Social Influencers of Health Screening 05/23/2024 Depression Screening 09/29/2024 09/30/2023 Cholesterol Screening (Lipid Panel) 10/16/2027 10/15/2022, 10/15/2022 DTaP,Tdap,and Td Vaccines (2 - Td or Tdap) 10/15/2032 10/15/2022 Hepatitis C Screening Completed 10/15/2022 Pneumococcal Vaccine: Pediatrics (0 to 5 Years) and At-Risk Patients (6 to 64 Years) Aged Out 10/15/2022 No longer eligible based on patient's age to complete this topic HIB Vaccines Aged Out No longer eligi ble based on patient's age to complete this topic HPV Vaccines Aged Out No longer eligi ble based on patient's age to complete this topic IPV Vaccines Aged Out No longer eligi ble based on patient's age to complete this topic MMR Vaccines Aged Out No longer eligi ble based on patient's age to complete this topic Meningococcal ACWY Vaccine Aged Out N o longer eligible based on patient's age to complete this topic Meningococcal B Vacine Aged Out No lo nger eligible based on patient's age to complete this topic RSV Immunization Patients Under 20 months Aged Out No longer eligible based on patient's age to complete this topic Varicella Vaccines Aged Out No longer eligible based on patient's age to complete this topic Insurance MEDICAID - [place] Care Teams Manager Photography Relationship Specialty Start Date End Date Physician, No Pcp PCP - General 06/01/24
[2024-10-11 15:13] VITALS: BP 117/77; PULSE 80; RESP 20; TEMP 36.7; O2SAT 98
[2024-10-11 15:38] VITALS: BP 117/77; PULSE 80; RESP 20; TEMP 36.7; O2SAT 98
== END 2024-10-11 15:39 | disposition home or self-care (01) ==
PROVIDERS: Physician Assistant; Emergency Provider Emergency Medicine
DX: R07.89 Other chest pain (principal); F41.9 Anxiety disorder, unspecified; J45.909 Unspecified asthma, uncomplicated; R06.02 Shortness of breath; Z79.899 Other long term (current) drug therapy
CPT/HCPCS: 36415; 71046; 80053; 83880; 84484; 85025; 85379; 85610; 85652; 85730; 93005; 94640; 99285

== ENCOUNTER → 2024-10-11 10:17 | Outpatient (BNV) | payer MEDICAID, SELFPAY | PROVIDERS: Emergency Provider Emergency Medicine; Visit Provider Internal Medicine | DX: R07.9 Chest pain, unspecified (principal) | CPT/HCPCS: 93010 ==

== ENCOUNTER → 2024-10-11 10:49 | Outpatient (BNV) | payer MEDICAID, SELFPAY | PROVIDERS: Emergency Provider Emergency Medicine; Visit Provider Radiology Diagnostic Radiology | DX: R07.9 Chest pain, unspecified (principal); R06.02 Shortness of breath | CPT/HCPCS: 71046 ==

== ENCOUNTER 2025-03-26 12:16 | Emergency (ER) | payer MEDICAID, SELFPAY ==
--- OUTSIDE RECORDS SUMMARY | 2025-03-21 10:00 | XMS_ITS | Encounter Summary ---
Author Organization [facility] Address [address] [place] [address] Care Team Providers Care Miter Sawyer Name Role Phone SailajaJesús philip DIRECTOR OF ENTERPRISE ARCHITECTURE-C Primary Care Provider [phone] Reason for Visit * Reason Comments Behavioral Health: Health And Behavior Encounter Details Date Type Department Care Team ([facility] st Contact Info) Description 03/21/2025 10:00 AM EDT / Visits [facility] [address] [place] [phone] Giovanni Young FNP [address] [place] [phone] Bruno Almanza [address] [place] [address] Social History Tobacco Use Types Packs/Day Years Used Date Smoking Tobacco: Every Day Cigarettes 0.2 11 Comments:1 in morning and 1 at night. [...] Safety and Environment Answer Date Sergio rded How often does anyone, inclu ding family and friends, physically hurt you? 1 05/17/2024 Utilities Answer Date Recorded Utilities 0 10/15/2022 Employment Answer Date Recorded Stress 0 10/15/2022 Comments No Sex and Gender Information Value Date Recorded Sex Assigned at Female 10/15/2022 3:43 PM PDT Legal Sex Female 6:13 AM PST Gender Identity Female 10/15/2022 3:43 PM PDT Sexual Orientation Straight 10/15/2022 3: 43 PM PDT documented as of this encounter Progress Notes * Giovanni Young, LUISA - 03/21/2025 2:08 PM EDT Subjective Follow up HPI Visit START TIME: 10 am Visit END TIME: 10.20 am Dory BOTELLO is a 39 year old female is being seen at the clinic for a follow-up appointment who has a history, and is being treated for RINKU, PTSD, depression, and panic attacks. A interpreter was present and assisted at this visit. The patient continues with psychotherapy here at [facility]. Depression The patient reported experiencing an improved mood and a decrease in excessive thoughts at night. She reports occasional feelings of depression secondary to financial and back pain stressors. The patient reports having 2-3 nightmares a week that interrupt sleep. Anxiety The patient reported experiencing moderate improvement in symptoms. She is taking Hydroxyzine BID. Sleep The patient reported improved sleep sleeping better than before The patient reports feeling paranoid as cameras are installed at all doors. *Panic attacks - endorses panic attacks during night hours Appetite The patient reported a normal appetite Manic symptoms - The patient denies any manic symptoms in the form of racing thoughts, mood swings, increased energy, reckless behavior, or less need for sleep. The patient is currently taking Hydroxyzine as BID needed for anxiety and reported medication calmsher down. The patient was started on Sertraline 50 mg. The patient reports being compliant with medications. The Patient reports a good response to medications. The patient denies side effects. The patient stated depression 8/10. 1 being none and 10 being the worst. Current Outpatient Medications on File Prior to Visit Medication Sig Dispense Refill ??? tirzepatide, weight loss, (ZEPBOUND) 5 mg/0.5 mL pnij Inject 5 mg into the skin once a week. 2 mL 0 ??? metFORMIN XR (GLUCOPHAGE-XR) 500 mg 24 hr tablet TAKE 1 TABLET BY MOUTH ONCE DAILY WITH DINNER 90 Tablet 1 ??? budesonide-formoteroL (SYMBICORT) 160-4.5 mcg/actuation inhaler INHALE 2 PUFFS INTO THE LUNGS TWICE A DAY 10.2 g 2 ??? QUEtiapine XR (SEROQUEL XR) 150 mg Tb24 24 hr tablet Take 1 Tablet by mouth nightly at bedtime for 90 days. 30 Tablet 2 ??? tiotropium bromide (SPIRIVA RESPIMAT) 1.25 mcg/actuation mist Inhale 2 Puffs into the lungs daily. 4 g 2 ??? estradioL (ESTRACE) 0.01 % (0.1 mg/gram) vaginal cream Place 1 g vaginally nightly at bedtime Use 1 g/nightly intravaginally for 2 weeks then 1 g one to three times per week. 42.5 g 11 ??? diclofenac sodium (VOLTAREN) 1 % gel Apply 2 g topically 2 (two) times daily. 100 g 1 ??? gabapentin (NEURONTIN) 300 mg capsule Take 1 Capsule by mouth 3 (three) times daily. 90 Capsule0 ??? metoprolol succinate XL (TOPROL-XL) 25 mg 24 hr tablet TAKE 1 TABLET BY MOUTH EVERY DAY 90 Tablet 1 ??? acetaminophen (TYLENOL) 500 mg tablet Take 2 Tablets by mouth every 6 (six) hours as needed forpain. 500 Tablet 2 ??? meloxicam (MOBIC) 15 mg tablet Take 1 Tablet by mouth once daily. 90 Tablet 0 ??? estradioL (VIVELLE-DOT) 0.1 mg/[address] 1 Patch onto the skin 2 times a week. 24 Patch3 ??? varenicline (CHANTIX STARTING MONTH KAYCEE) 0.5 mg (11)- 1 mg (42) tablet USE DIRECTED 53 Tablet 1 ??? albuterol HFA 90 mcg/actuation inhaler Inhale 2 Puffs into the lungs every 6 (six) hours as needed for shortness of breath 18 g 2 ??? inhalational spacing device Use with inhaler 1 Each 0 No current facility-administered medications on file prior to visit. Safety Assessment (Suicide/Homicidal Risk) Feels like hurting self DENIES Violence Risk: No Active Intent, No Plan Feels like hurting others DENIES Suicidal Risk: No Active SI, No Plan Emotion/Mood Calm Coping (Observed Emotional State) Calm and Cooperative Speech Clear, coherent Orientation WNL and Oriented to all domains Thought Processes WNL Hallucinations Denies hallucinations Delusions No delusions Review of Systems As noted above Objective There were no vitals filed for this visit. Estimated body mass index is 49.9 kg/m?? as calculated from the following: Height as of 03/04/25: 5' 3 (1.6 m). Weight as of 03/04/25: 281 lb 11.2 oz (127.8 kg). No height and weight on file for this encounter. Physical Exam Constitutional: Appearance: Normal appearance. HENT: Head: Normocephalic and atraumatic. Neurological: Mental Status: She is alert and oriented to person, place, and time. Psychiatric: Attention and Perception: Attention normal. Mood and Affect: Mood normal. Speech: Speech normal. Behavior: Behavior normal. Thought Content: Thought content normal. Cognition and Memory: Cognition normal. Assessment and Plan 1. Major depression with psychotic features (CMS & HHS-HCC) (Primary) - sertraline (ZOLOFT) 100 mg tablet; Take 1 Tablet by mouth once daily for 90 days. Dispense: 30 Tablet; Refill: 2 2. Panic attack - sertraline (ZOLOFT) 100 mg tablet; Take 1 Tablet by mouth once daily for 90 days. Dispense: 30 Tablet; Refill: 2 3. PTSD (post-traumatic stress disorder) - prazosin (MINIPRESS) 1 mg capsule; Take 1 Capsule by mouth nightly at bedtime for 90 days. Dispense: 30 Capsule; Refill: 2 4. RINKU (generalized anxiety disorder) - hydrOXYzine pamoate (VISTARIL) 25 mg capsule; Take 1 Capsule by mouth once daily as needed for anxiety for up to 90 days. Dispense: 90 Capsule; Refill: 0 - sertraline (ZOLOFT) 100 mg tablet; Take 1 Tablet by mouth once daily for 90 days. Dispense: 30 Tablet; Refill: 2 - Increase Sertraline to 100 to address depressive symptoms and panic attacks. - Start Prazosin to help with night caal -Continue with Quatipieni and hydroxyzine RTC as scheduled and prn or if symptoms worsen documented in this encounter Plan of Treatment Upcoming Encounters Date Type Department Care Team (Late st Contact Info) Description 05/02/2025 10:40 AM EDT / Visits [address] [phone] Giovanni Young FNP [address] [place] [phone] Bruno Almanza [address] [place] [id number] 05/08/2025 3:40 PM EDT Office Visit [address] [phone] Rizwan Ceron MD [address] [place] [address] Marce Aguilar [address] [place] [phone] documented as of this encounter Visit Diagnoses Diagnosis Major depression with psychotic features (CMS & HHS-HCC)- Primary Panic attack Panic disorder without agoraphobia PTSD (post-traumatic stress disorder) Posttraumatic stress disorder RINKU (generalized anxiety disorder) Generalized anxiety disorder documented in this encounter Additional Health Concerns Assessment Noted Time PHQ-9 Depression Total Score: 0 01/03/20 25 3:38 PM PDT A Depression follow-up plan has been documented for the patient 09/30/2023 5:16 PM PST documented as of this encounter Care Teams Miter Sawyer Relationship Specialty Start Date End Date Jesús Menard FNP-C [address] [place] [id number] PCP - General Internal Medicine 11/02/22 documented as of this encounter
--- OUTSIDE RECORDS SUMMARY | 2025-03-21 17:00 | XMS_ITS | Encounter Summary ---
Author Organization [facility] Address [address] [place] [address] Care Team Providers Care Weight Reduction Specialist Name Role Phone Jesús Menard CONSOLE ATTENDANT-C Primary Care Provider [phone] Reason for Visit * Reason Comments Follow Up Weight f/u Encounter Details Date Type Department Care Team ([facility] st Contact Info) Description 03/21/2025 5:00 PM EDT Office Visit [address] [phone] Jesús Menard FNP-C [address] [place] [phone] Bindu Torres [address] [place] [phone] Social History Tobacco Use Types Packs/Day Years [...] PM PDT documented as of this encounter Last Filed Vital Signs Vital Sign Reading Time Taken Comments Blood Pressure 126/68 03/21/2025 4:39 PM EDT Pulse 103 03/21/2025 4:39 PM EDT Temperature 36.7 C (98 F) 03/21/2025 4:39 PM EDT Respiratory Rate 16 03/21/2025 4:39 PM EDT Oxygen Saturation - - Inhaled Oxygen Concentration - - Weight 126.5 kg (278 lb 12.8 oz) 03/21/2025 4:39 PM EDT Height 160 cm (5' 3 ) 03/21/2025 4:39 PM EDT Body Mass Index 49.39 03/21/2025 4:39 PM EDT documented in this encounter Progress Notes * LUISA Serrano-Fabrizio - 03/21/2025 4:42 PM EDT Subjective: CC: Follow Up (Weight f/u) Swimming Pool Service Technician: Bindu HPI: Dory BOTELLO is a 39 year old female patient who presents to the office today for follow up Pt with lumbar back pain - follows with [facility] Xray showed degenerative disc space narrowing at L5-S1 Ct scan showed disc space narrowing at L5-S1 w/ bilateral foraminal narrowing with slight retrolisthesis She did received cortisone injections She is following with physical therapy Ortho placed her on work restrictions and signed FMLA until 03/20/2025. She is not cleared to work until ortho clears her, and her follow up is not until 05/29/2025 Obesity Continues on Zepbound, currently on 5 mg Minimal weight loss noted Tolerating med well No Known Allergies Patient Active Problem List Diagnosis Obese Syphilis in female: sp treatment around 2008 Adjustment disorder with mixed anxiety and depressed mood Pre-diabetes Borderline hypertension Moderate persistent asthma (HHS-HCC) Chronic bilateral low back pain with bilateral sciatica Obesity, Class III, BMI 40-49.9 (morbid obesity) Current Outpatient Medications on File Prior to Visit Medication Sig Dispense Refill metFORMIN XR (GLUCOPHAGE-XR) 500 mg 24 hr tablet TAKE 1 TABLET BY MOUTH ONCE DAILY WITH DINNER 90 Tablet 1 budesonide-formoteroL (SYMBICORT) 160-4.5 mcg/actuation inhaler INHALE 2 PUFFS INTO THE LUNGS TWICEA DAY 10.2 g 2 QUEtiapine XR (SEROQUEL XR) 150 mg Tb24 24 hr tablet Take 1 Tablet by mouth nightly at bedtime for 90 days. 30 Tablet 2 tiotropium bromide (SPIRIVA RESPIMAT) 1.25 mcg/actuation mist Inhale 2 Puffs into the lungs daily. 4 g 2 estradioL (ESTRACE) 0.01 % (0.1 mg/gram) vaginal cream Place 1 g vaginally nightly at bedtime Use 1g/nightly intravaginally for 2 weeks then 1 g one to three times per week. 42.5 g 11 diclofenac sodium (VOLTAREN) 1 % gel Apply 2 g topically 2 (two) times daily. 100 g 1 gabapentin (NEURONTIN) 300 mg capsule Take 1 Capsule by mouth 3 (three) times daily. 90 Capsule 0 metoprolol succinate XL (TOPROL-XL) 25 mg 24 hr tablet TAKE 1 TABLET BY MOUTH EVERY DAY 90 Tablet 1 acetaminophen (TYLENOL) 500 mg tablet Take 2 Tablets by mouth every 6 (six) hours as needed for pain. 500 Tablet 2 meloxicam (MOBIC) 15 mg tablet Take 1 Tablet by mouth once daily. 90 Tablet 0 estradioL (VIVELLE-DOT) 0.1 mg/[address] 1 Patch onto the skin 2 times a week. 24 Patch 3 varenicline (CHANTIX STARTING MONTH ) 0.5 mg (11)- 1 mg (42) tablet USE DIRECTED 53 Tablet 1 albuterol HFA 90 mcg/actuation inhaler Inhale 2 Puffs into the lungs every 6 (six) hours as needed for shortness of breath 18 g 2 inhalational spacing device Use with inhaler 1 Each 0 No current facility-administered medications on file prior to visit. Review of Systems Remainder ROS: See HPI, systems reviewed and are otherwise negative or noncontributory. Objective: Vitals: 03/21/25 1639 BP: 126/68 Pulse: (!) 103 Resp: 16 Temp: 98 ??F (36.7 ??C) TempSrc: Oral Weight: 278 lb 12.8 oz (126.5 kg) Height: 5' 3 (1.6 m) Body mass index is 49.39 kg/m??. Physical Exam Constitutional: General: She is not in acute distress. Appearance: She has obesity Cardiovascular: Rate and Rhythm: Normal rate and regular rhythm. Pulses: Normal pulses. Heart sounds: Normal heart sounds. Pulmonary: Effort: Pulmonary effort is normal. Breath sounds: Normal breath sounds. Lifestyle measures:BMI follow up plan: The patient was counseled regarding nutrition and physical activity. Tobacco Intervention:provided smoking cessation counseling Depression screen: PHQ-9 Total Score (Auto Calculated) 0 at 01/02/2025 3:38 PM 01/02/2025 3:38 PM Did patient decline PHQ screening? No Little interest or pleasure in doing things Not at all Feeling down, depressed or hopeless [include irritable if under 18] Not at all PHQ2 Score 0 Little interest or pleasure in doing things Not at all Feeling down, depressed or hopeless [include irritable if under 18] Not at all Trouble falling or staying asleep, or sleeping too much Not at all Feeling tired or having little energy Not at all Poor appetite or overeating Not at all Feeling bad about yourself - or that you are a failure or have let yourself or your family down Notat all Trouble concentrating on things, such as reading the newspaper or watching television? Not at all Moving or speaking so slowly that other people could have noticed? Or the opposite - being so fidgety or restless that you have been moving around a lot more than usual Not at all Thoughts you would be better off or of hurting yourself in some way Not at all If you checked off any problems, how difficult have these problems made it for you to do your work,take care of things at home, or get along with other people? Not difficult at all PHQ-9 Total Score (Auto Calculated) 0 Depression Severity: None-minimal The 10-year ASCVD risk score (Justina MERAZ, et al., 2019) is: 2.2% Assessment and Plan: Dory BOTELLO is a 39 year old female patient who was seen today for evaluation of Follow Up (Weight f/u) E66.813,Z68.42 Class 3 severe obesity due to excess calories without serious comorbidity with body mass index (BMI) of 45.0 to 49.9 in adult (CMS & HHS-HCC) (primary encounter diagnosis) Plan : ZEPBOUND 7.5 MG/0.5 ML SUBCUTANEOUS PEN INJECTOR - Inject 7.5 mg into the skin once a week. HEMOGLOBIN GLYCOSYLATED A1C LIPID PANEL Z76.89 Encounter for weight management Plan : ZEPBOUND 7.5 MG/0.5 ML SUBCUTANEOUS PEN INJECTOR - Inject 7.5 mg into the skin once a week. HEMOGLOBIN GLYCOSYLATED A1C LIPID PANEL R73.03 Pre-diabetes Plan : HEMOGLOBIN GLYCOSYLATED A1C LIPID PANEL Work note provided Return in about 3 months (around 06/21/2025) for weight follow up. Assessment and plan discussed with patient. Patient agrees with plan. Questions answered. documented in this encounter Plan of Treatment Upcoming Encounters Date Type Department Care Team (Late st Contact Info) Description 05/02/2025 10:40 AM EDT BH/MH Visits [address] [phone] Giovanni Yougn FNP [address] [place] [address] Bruno Almanza [address] [place] [phone] 05/08/2025 3:40 PM EDT Office Visit [address] [phone] Rizwan Ceron MD [address] [place] [id number] Marce Aguilar [address] [place] [phone] documented as of this encounter Procedures Procedure Name Priority Date/Time Associated Diagnosis Comments HEMOGLOBIN GLYCOSYLATED A1C Routine 03/21/2025 5:13 PM EDT Class 3 severe obesity due to excess calories without serious comorbidity with body mass index (BMI) of 45.0 to 49.9 in adult ([facility]) Encounter for weight management Pre-diabetes LIPID PANEL Routine 03/21/2025 5:13 PM EDT Class 3 severe obesity due to excess calories without serious comorbidity with body mass index (BMI) of 45.0 to 49.9 in adult ([facility]) Encounter for weight management Pre-diabetes documented in this encounter Results * (ABNORMAL) LIPID PANEL Routine (03/21/2025 5:13 PM EDT) CHOLESTEROL, TOTAL 202(H) <200 mg/dL 03/22/2025 9:35 AM EDT [facility] HDL CHOLESTEROL 53 > OR = 50 mg/dL 03/22/2025 9:35 AM EDT [facility] TRIGLYCERIDES 177(H) <150 mg/dL 03/22/2025 9:35 AM [employer] [facility] LDL-CHOLESTEROL 120(H) mg/dL (calc) 03/22/2025 9:35 AM EDT [facility] CHOL/HDLC RATIO 3.8 <5.0 (calc) 03/22/2025 9:35 AM [facility] NON-HDL CHOLESTEROL 149(H) <130 mg/dL (calc) 03/22/2025 9:35 AM [employer] [facility] Blood Blood / Unknown 03/21/2025 5 :13 PM EDT 03/22/2025 6:57 AM EDT [facility] - 03/22/2025 9:41 AM EDT FASTING:NO Reference range: <100 . Desirable range <100 mg/dL for primary prevention; <70 mg/dL for patients with CHD or diabetic patients with > or = 2 CHD risk factors. . LDL-C is now calculated using the Gurmeet-Phelps calculation, which is a validated novel method providing better accuracy than the Friedewald equation in the estimation of LDL-C. Gurmeet HERNÁNDEZ et al. SUE. 2013;310(04): 6692-1165 (http://education.Anhelo.SiSense/faq/TKG547) For patients with diabetes plus 1 major ASCVD risk factor, treating to a non-HDL-C goal of <100 mg/dL (LDL-C of <70 mg/dL) is considered a therapeutic option. [facility] LAB - BLOOD DRAW Final Re sult Performing Organization Address [facility] de Phone Number [employer] [address] [place] [id number], [facility] [address] [place] [phone] * (ABNORMAL) HEMOGLOBIN GLYCOSYLATED A1C Routine (03/21/2025 5:13 PM EDT) HEMOGLOBIN A1C 5.7(H) <5.7 % 03/22/2025 4:52 AM EDT [facility] Blood Blood / Unknown 03/21/2025 5 :13 PM EDT 03/22/2025 3:23 AM EDT Narrative [facility] [facility] - 03/22/2025 4:55 AM EDT FASTING:NO For someone without known diabetes, a hemoglobin A1c value between 5.7% and 6.4% is consistent with prediabetes and should be confirmed with a follow-up test. . For someone with known diabetes, a value <7% indicates that their diabetes is well controlled. A1c targets should be individualized based on duration of diabetes, age, comorbid conditions, and other considerations. . This assay result is consistent with an increased risk of diabetes. . Currently, no consensus exists regarding use of hemoglobin A1c for diagnosis of diabetes for children. . [employer] CONSOLE ATTENDANT-C LAB - BLOOD DRAW Final Re sult Performing Organization Address [facility] Co de Phone Number [facility] [facility] [address] [place] [phone], [facility] [address] [place] [phone] documented in this encounter Visit Diagnoses Diagnosis Class 3 severe obesity due to excess calories without serious comorbidity with body mass index (BMI) of 45.0 to 49.9 in adult ([facility])- Primary Encounter for weight management Pre-diabetes Other abnormal glucose documented in this encounter Additional Health Concerns Assessment Noted Time PHQ-9 Depression Total Score: 0 01/03/20 25 3:38 PM PDT A Depression follow-up plan has been documented for the patient 09/30/2023 5:16 PM PST documented as of this encounter Care Teams Weight Reduction Specialist Relationship Specialty Start Date End Date Jesús Menard FNP-C [facility] [place] [address] PCP - General Internal Medicine 11/02/22 documented as of this encounter
[2025-03-26 13:25] VITALS: BP 141/73; PULSE 87; RESP 18; TEMP 36.7; O2SAT 97; BMI 47.4
--- NOTE | 2025-03-26 13:32 | ED_ITS ---
HPI - General Adult General Chief complaint: Skin/Abscess/Foreign Body Stated complaint: Rash Time Seen by Provider: 03/26/25 13:30 Source: patient Mode of arrival: ambulatory Limitations: no limitations History of Present Illness ED Provider: Edmond Ramsey HPI narrative: 39 yold female with pmh of asthma presents to the ED for itchy rash on bilateral breasts since tuesday. Patient denies trying new cosmetics, dergents, clothings, or food. Patient denies being bitten by tick. Related Data Previous Rx's ?Medication ?Instructions ?Recorded albuterol sulfate 90 mcg/actuation 2 puff inhalation Q 4-6H PRN 10/04/22 aerosol inhaler shortness of breath or wheez ing #8.5 grams azithromycin 250 mg tablet 250 mg PO DAILY 4 days #4 t abs 10/04/22 prednisone 20 mg tablet 20 mg PO DAILY #5 tabs 10/04 cyclobenzaprine 5 mg tablet 5 mg PO TID PRN muscle spa sm 7 02/08/23 days #21 tabs prednisone 20 mg tablet 20 mg PO DAILY 7 days #7 tab s 02/08/23 hydroxyzine HCl 25 mg tablet 25 mg PO QID PRN anxiety 7 days 10/11/24 #28 tabs prednisone 20 mg tablet 40 mg (2 x 20 mg) PO DAILY 5 days 10/11/24 #10 tabs diphenhydramine HCl 25 mg capsule 25 mg PO TID PRN itc merrill #21 caps 03/26/25 (Benadryl) famotidine 20 mg tablet (Pepcid AC) 20 mg PO BID 5 day s #10 tabs 03/26/25 hydrocortisone 1 % topical cream 1 appl topical BID VA N rash 2 03/26/25 weeks #28.4 grams prednisone 20 mg tablet 40 mg (2 x 20 mg) PO DAILY 5 days 03/26/25 #10 tabs Allergies Allergy/AdvReac Type Severity Reaction Status Date / Time No Known Allergies Allergy Verified 03/26/25 13:32 Review of Systems 2 Review of Systems: itchy rash on breasts Yes all other systems are reviewed and are negative PMFSH Social History Social History Advance Directives: No Advance Directives Information Provided: Yes Physical Exam ED Vital Signs: Vital Signs - 24 hr 03/26/25 14:38 Temperature 98.1 F Pulse Rate 87 Respiratory Rate 18 Blood Pressure 141/73 H Pulse Oximetry 97 Oxygen Delivery Method Room Air BMI result Body Mass Index 47.4 Const General: cooperative, healthy appearing, comfortable, no acute distress, well developed, alert, awake and Physically active Orientation/consciousness: patient oriented x3 HENMT Other: Negative for any lip/tongue/uvula swelling. negative for any facial or neck swelling. negative for drooling or change in voice. Head: Yes normal to inspection, Yes No palpable skull fracture present, Yes normocephalic and Yes atraumatic Throat: Yes posterior oropharynx normal, Yes tonsils normal and Yes uvula midline Eyes General: appearance normal, both eyes and all related structures Neck Neck: Yes normal visual inspection, Yes full ROM, Yes no lymphadenopathy, Yes no meningeal signs, Yes trachea midline, Yes supple, No anterior neck swelling, No bilateral parotid enlargement and No tender Chest Chest palpation & inspection: normal inspection of the chest Chest/axillae images: 2 1. positive for uticaria rash. negative for nipple discharge, breast swelling, breast tenderness, or ecchymosis. negative for vesicular lesions. negative for axillary lymphadenoapthy. Resp Effort & Inspection: normal respiratory effort and able to speak in complete sentences Auscultation: clear to auscultation bilaterally Cardio Jugular venous distension: no JVD Heart sounds: S1 normal heart sound present and S2 normal heart sound present GI Inspection: Yes normal to inspection Palpation (GI): Soft to palpation, not firm, nontender, no guarding and not rigid General: Yes no CVA tenderness Back/Spine/Pelvis Back: no CVA tenderness and No back tenderness Skin General skin exam: no rashes or lesions noted, elasticity normal and turgor normal Neuro General: patient oriented x3, gait normal, tone normal, moves all extremities, Normal light touch and pain sensation, no meningeal signs, no focal motor deficits and CN's II-XI intact bilaterally Extrem General: Yes normal to inspection, Yes full ROM and Yes capillary refill normal Psych Appearance: grossly normal, well kempt and not disheveled Medical Decision Making Medical Decision Making MDM Narrative: 39 yold female menopausal presents to the ED for itchy rash on bilateral breast and midsternal area since tuesday. patient denies any new cosmsetics, bras, or bug bites. patient Denies any breast feeding, nipple discharge, lump, or, trauma. physical exam positive for itchy jewel on bilateral breast and misternal area. negative for bites, vesicular lesions, abscess, or pus drainage. Not suspecting shingles, breast abscess, mastitis, anaphylaxis, Robe Adilson syndrome, cellulitits, breast cancer, CO, PE, pneumonia, pneumo/hemothorax, or any other life threatening eitology. Differential Diagnosis Differential Diagnoses: The differential diagnosis associated with the presentation includes (Allergic reaction, cellulitis) Admission/Observation Consideration of admission/observation: Escalation of care including admission/observation considered Independent Historian Clinical information obtained from an independent historian. History obtained from or confirmed by: Other (patient) Prescription Management I considered prescription management with: Other (Prednisone Benadryl and Pepcid) Discharge Plan Discharge Clinical Impression: Contact dermatitis, Allergic reaction Patient Disposition: Home, Self-Care Instructions: Contact Dermatitis (ED), General Allergic Reaction (ED) Additional Instructions: Recommend follow-up with Dermatology and primary care provider. Return to the ED immediately for any worsening rash, breast swelling, nipple discharge, foul odor, tender mass lump on breast, chest pain, shortness of breath, fever, chills, or any other concerning symptoms. Follow-up with [facility] [address] [place], [place] [id number] . [email or web address] appointments are made on line. If oral steroids do not work then used steroid cream. Prescriptions: New diphenhydramine HCl [Benadryl] 25 mg capsule 25 mg PO TID PRN (Reason: itching) Qty: 21 0RF prednisone 20 mg tablet 40 mg PO DAILY 5 Days Qty: 10 0RF famotidine [Pepcid AC] 20 mg tablet 20 mg PO BID 5 Days Qty: 10 0RF hydrocortisone 1 % cream 1 appl topical BID PRN (Reason: rash) 14 Days Qty: 28.4 0RF No Action albuterol sulfate 90 mcg/actuation HFA aerosol inhaler 2 puff inhalation Q4-6H PRN (Reason: shortness of breath or wheezing) Qty: 8.5 0RF azithromycin 250 mg tablet 250 mg PO DAILY 4 Days Qty: 4 0RF Rx Instructions: start on day 2 of therapy prednisone 20 mg tablet 20 mg PO DAILY Qty: 5 0RF hydroxyzine HCl 25 mg tablet 25 mg PO QID PRN (Reason: anxiety) 7 Days Qty: 28 0RF prednisone 20 mg tablet 40 mg PO DAILY 5 Days Qty: 10 0RF prednisone 20 mg tablet 20 mg PO DAILY 7 Days Qty: 7 0RF cyclobenzaprine 5 mg tablet 5 mg PO TID PRN (Reason: muscle spasm) 7 Days Qty: 21 0RF Stand Alone Forms: Work/School Release Interventions: ED Discharge Assessment Last Done: 03/26/25 14:38 Discharge Date/Time: 03/26/25 14:39 Print Language: Nepali
[2025-03-26 14:38] VITALS: BP 141/73; PULSE 87; RESP 18; TEMP 36.7; O2SAT 97
--- OUTSIDE RECORDS SUMMARY | 2025-03-26 14:43 | XMS_ITS | Encounter Summary ---
Author Organization [facility] Address [address] [place] [address] Care Team Providers Care Wood Carver Hand Name Role Phone Jesús Menard APPEALS COORDINATOR- Primary Care Provider [phone] Encounter Details Date Type Department Care Team ([facility] Contact Info) Description 03/26/2025 Results Follow-Up [place] [address] [place] [phone] Jesús Menard FNP-C [address] [place] [address] Social History Tobacco Use Types Packs/Day Years [...] PM PDT documented as of this encounter Plan of Treatment Upcoming Encounters Date Type Department Care Team (Late st Contact Info) Description 05/02/2025 10:40 AM EDT / Visits [address] [phone] Giovanni Young FNP [address] [place] [phone] Bruno Almanza [address] [place] [phone] 05/08/2025 3:40 PM EDT Office Visit [address] [phone] Rizwan Ceron MD [address] [place] [phone] Marce Aguilar [address] [place] [phone] documented as of this encounter Visit Diagnoses Not on filedocumented in this encounter Additional Health Concerns Assessment Noted Time PHQ-9 Depression Total Score: 0 01/03/20 25 3:38 PM PDT A Depression follow-up plan has been documented for the patient 09/30/2023 5:16 PM PST documented as of this encounter Care Teams Wood Carver Hand Relationship Specialty Start Date End Date Jesús Menard FNP-C [address] [place] [id number] PCP - General Internal Medicine 11/02/22 documented as of this encounter
--- OUTSIDE RECORDS SUMMARY | 2025-03-26 14:43 | XMS_ITS | Clinical Summary ---
Author Organization [facility] Address [address] [place] [address] Phone Care Team Providers Care Senior Contracts Manager Name Role Phone Jesús Menard LUISA Primary Care Provider [phone] Social History Tobacco Use Types Packs/Day Years Used Date Smoking Tobacco: Never Assessed Comments Unknown Sex and Gender Information Value Date Recorded Sex Assigned at Not on file Legal Sex Female 2:47 PM EDT Gender Identity Not on file Sexual Orientation Not on file Plan of Treatment Upcoming Encounters Date Type Department Care Team (Late st Contact Info) Description 05/02/2025 10:30 AM EDT Consult Orthopedic Surgery - [place] [address] [facility] [address] [place] [address] Francisco Hendrix, DPM [address] [place] [address] Health Maintenance Due Date Last Done Comments Breast Cancer Screening 1984 Hepatitis B Vaccines (1 of 3 - 19+ 3-dose series) 2003 Cervical Cancer Screening: Pap Smear 2005 COVID-19 Vaccine ( season) 2024 02/25/2022, 12/17/2021, 10/18/2021, Additional history exists HIV Screening 05/23/2024 Social Influencers of Health Screening 05/23/2024 Depression Screening 08/01/2024 Influenza Vaccine (#1) 2025 10/21/2022 Cholesterol Screening (Lipid Panel) 10/16/2027 10/15/2022, 10/15/2022 DTaP,Tdap,and Td Vaccines (2 - Td or Tdap) 10/15/2032 10/15/2022 Hepatitis C Screening Completed 10/15/2022 Pneumococcal Vaccine: Pediatrics (0 to 5 Years) and At-Risk Patients (6 to 49 Years) Aged Out 10/15/2022 No longer eligible based on patient's age to complete this topic HIB Vaccines Aged Out No longer eligi ble based on patient's age to complete this topic HPV Vaccines Aged Out No longer eligi ble based on patient's age to complete this topic Hepatitis A Vaccines Aged Out No long er eligible based on patient's age to complete this topic IPV Vaccines Aged Out No longer eligi ble based on patient's age to complete this topic MMR Vaccines Aged Out No longer eligi ble based on patient's age to complete this topic Meningococcal ACWY Vaccine Aged Out N o longer eligible based on patient's age to complete this topic Meningococcal B Vaccine Aged Out No l onger eligible based on patient's age to complete this topic RSV Immunization Patients Under 20 months Aged Out No longer eligible based on patient's age to complete this topic Varicella Vaccines Aged Out No longer eligible based on patient's age to complete this topic Insurance MEDICAID - [place] Care Teams Senior Contracts Manager Relationship Specialty Start Date End Date Jesús Menard FNP [address] [place] [address] PCP - General Family Medicine 02/13/25
--- OUTSIDE RECORDS SUMMARY | 2025-03-26 14:43 | XMS_ITS | Clinical Summary ---
Author Organization [facility] Address [address] [place] [address] Care Team Providers Care Maintenance Services Dispatcher Name Role Phone Unavailable Primary Care Provider Unavailabl e Encounters Date Type Department Care Team Description 02/19/2025 Population Health Risk Score [facility] (C3) Department [address] [facility] [address] [place] [address] Provider, Population Health Generic from Last 3 Months Social History Tobacco Use Types Packs/Day Years Used Date Smoking Tobacco: Never Assessed Comments Unknown Sex and Gender Information Value Date Recorded Sex Assigned at Not on file Legal Sex Female 9:24 PM EDT Gender Identity Not on file Sexual Orientation Not on file Plan of Treatment Health Maintenance Due Date Last Done Comments Depression Screening 1984 Lipid Panel 1984 SDOH Screening 1984 Disability Screening 1984 Alcohol/Substance Use Screening 1996 Tobacco Screening 1996 Family Planning (PISQ) 1999 HPV Vaccines (1 - 3-dose series) 1999 Hepatitis C Screening 2002 Hepatitis B Vaccines (1 of 3 - 19+ 3-dose series) 2003 Pap Smear 2005 Cervical Cancer Screening 2014 HPV/Cotest 2014 COVID-19 Vaccine ( season) 2024 02/25/2022, 12/17/2021, 10/18/2021, Additional history exists Mammogram 2024 Influenza Vaccine (#1) 2025 05/03/2024, 2022 DTaP/Tdap/Td Vaccines (2 - Td or Tdap) 10/15/2032 10/15/2022 Zoster Vaccines (1 of 2) 2034 RSV Patients and Patients Aged 60 years or older (1 - 1-dose 75+ series) 2059 HIV Screening Completed 10/15/2022, 10/15/2022 Pneumococcal Vaccine: Pediatrics (0 to 5 Years) and At-Risk Patients (6 to 49) Years Completed 10/15/2022 HIB Vaccines Aged Out No longer eligi [...] patient's age to complete this topic Meningococcal Vaccine Aged Out No grzegorz urmila eligible based on patient's age to complete this topic RSV under 20 months Aged Out No longe r eligible based on patient's age to complete this topic Rotavirus Vaccines Aged Out No longer eligible based on patient's age to complete this topic
--- OUTSIDE RECORDS SUMMARY | 2025-03-26 14:43 | XMS_ITS ---
Author Organization [facility] Address [address] [place] [address] Care Team Providers Care Sole Ruffer Name Role Phone Jesús Menard-Fabrizio Primary Care Provider [phone] Asthma Program Status:Enrolled (Active) Start date:07/05/2024 Enrollment date:07/05/2024 Case Team Name Relationship Phone Yonis Conde PharmD(Responsible S taff) [phone] Continued Care and Services Coordination
--- OUTSIDE RECORDS SUMMARY | 2025-03-26 14:43 | XMS_ITS | Clinical Summary ---
Author Organization [facility] Address [address] [place] [address] Care Team Providers Care Ball Points Inspector Name Role Phone Sailaja Jesús RELIGION TEACHER-C Primary Care Provider [phone] Source Comments PLEASE NOTE, if this patient is a minor, it may be UNLAWFUL to discuss sensitive information that is contained in these records (such as FAMILY PLANNING, MENTAL HEALTH or SUBSTANCE ABUSE) with the minor patient's parent or other person without the patient's specific authorization.[facility] Allergies No known active allergies Medications inhalational spacing deviceIndication s:SOB (shortness of breath) Use with inhaler 1 Each 10/16/19 23 Active albuterol HFA 90 mcg/actuation inhalerIndicatio ns:Moderate persistent asthma, unspecified whether complicated ([facility]) Inhale 2 Puffs into the lungs every 6 (six) hours as needed for shortness of breath 18 g 2 07/05/20 24 Active varenicline (CHANTIX STARTING MONTH ) 0.5 mg (11)- 1 mg (42) tabletIndication s:Tobacco dependence USE DIRECTED 53 Tablet 1 07/19/20 24 Active estradioL (VIVELLE-DOT) 0.1 mg/[address] 1 Patch onto the skin 2 times a week. 24 Patch 3 01/03/20 25 Active acetaminophen (TYLENOL) 500 mg tabletIndication s:Chronic bilateral low back pain with bilateral sciatica Take 2 Tablets by mouth every 6 (six) hours as needed for pain. 500 Tablet 2 01/05/20 25 Active meloxicam (MOBIC) 15 mg tabletIndication s:Chronic bilateral low back pain with bilateral sciatica Take 1 Tablet by mouth once daily. 90 Tablet 01/05/20 25 Active metoprolol succinate XL (TOPROL-XL) 25 mg 24 hr tabletIndication s:Palpitations,R ecurrent headache TAKE 1 TABLET BY MOUTH EVERY DAY 90 Tablet 1 01/09/20 25 Active gabapentin (NEURONTIN) 300 mg capsuleIndicatio ns:Chronic bilateral low back pain with bilateral sciatica Take 1 Capsule by mouth 3 (three) times daily. 90 Capsule 01/25/20 25 Active diclofenac sodium (VOLTAREN) 1 % gelIndications:C hronic bilateral low back pain with bilateral sciatica Apply 2 g topically 2 (two) times daily. 100 g 1 01/25/20 25 Active estradioL (ESTRACE) 0.01 % (0.1 mg/gram) vaginal creamIndications :Vaginal atrophy Place 1 g vaginally nightly at bedtime Use 1 g/nightly intravaginally for 2 weeks then 1 g one to three times per week. 42.5 g 11 02/06/20 25 Active tiotropium bromide (SPIRIVA RESPIMAT) 1.25 mcg/actuation mistIndications: Moderate persistent asthma without complication (HHS-HCC) Inhale 2 Puffs into the lungs daily. 4 g 2 02/07/20 25 Active QUEtiapine XR (SEROQUEL XR) 150 mg Tb24 24 hr tabletIndication s:Major depression with psychotic features (CMS & HHS-HCC) Take 1 Tablet by mouth nightly at bedtime for 90 days. 30 Tablet 2 02/07/20 25 025 Active budesonide-formo teroL (SYMBICORT) 160-4.5 mcg/actuation inhalerIndicatio ns:SOB (shortness of breath) INHALE 2 PUFFS INTO THE LUNGS TWICE A DAY 10.2 g 2 02/13/20 25 Active metFORMIN XR (GLUCOPHAGE-XR) 500 mg 24 hr tabletIndication s:Pre-diabetes TAKE 1 TABLET BY MOUTH ONCE DAILY WITH DINNER 90 Tablet 1 02/14/20 25 Active hydrOXYzine pamoate (VISTARIL) 25 mg capsuleIndicatio ns:RINKU (generalized anxiety disorder) Take 1 Capsule by mouth once daily as needed for anxiety for up to 90 days. 90 Capsule 03/21/20 25 025 Active prazosin (MINIPRESS) 1 mg capsuleIndicatio ns:PTSD (post-traumatic stress disorder) Take 1 Capsule by mouth nightly at bedtime for 90 days. 30 Capsule 2 03/21/20 25 025 Active sertraline (ZOLOFT) 100 mg tabletIndication s:Major depression with psychotic features ([facility]),Panic attack,RINKU (generalized anxiety disorder) Take 1 Tablet by mouth once daily for 90 days. 30 Tablet 2 03/21/20 25 025 Active tirzepatide, weight loss, (ZEPBOUND) 7.5 mg/0.5 mL pnijIndications: Class 3 severe obesity due to excess calories without serious comorbidity with body mass index (BMI) of 45.0 to 49.9 in adult ([facility]),Encount er for weight management Inject 7.5 mg into the skin once a week. 2 mL 03/21/20 25 Active sertraline (ZOLOFT) 50 mg tabletIndication s:Panic attack,Adjustmen t disorder with mixed anxiety and depressed mood Take 1 Tablet by mouth once daily for 90 days. 30 Tablet 2 01/25/20 25 025 Discontin ued(Ineff ective therapy) hydrOXYzine pamoate (VISTARIL) 25 mg capsuleIndicatio ns:RINKU (generalized anxiety disorder) Take 1 Capsule by mouth once daily as needed for anxiety for up to 90 days. 90 Capsule 02/07/20 25 025 Discontin ued(Reord er (E-Cancel Not Sent)) predniSONE (DELTASONE) 10 mg tabletIndication s:Bunion,Hammer toes of both feet Take 3 tabs daily for 3 days, then 2 tabs daily for 3 days, then 1 tab daily for 3 days. 18 Tablet 02/09/20 25 025 Discontin ued(Outda adolfo-Remov ed from Med List (E-Cancel Not Sent)) tirzepatide, weight loss, (ZEPBOUND) 5 mg/0.5 mL pnij Inject 5 mg into the skin once a week. 2 mL 02/20/20 25 025 Discontin ued(Thera py completed /Not needed) Active Problems Problem Noted Date Diagnosed Date Chronic bilateral low back pain with bilateral s ciatica 09/06/2024 Obesity, Class III, BMI 40-49.9 (morbid obesity) 09/06/2024 Moderate persistent asthma ([facility]) 07/05/2024 Pre-diabetes 05/28/2023 Borderline hypertension 05/28/2023 Adjustment disorder with mixed anxiety and depre ssed mood 01/15/2014 Syphilis in female: sp treatment around 10/2013 Overview (01/02/2014): Dory Aguilar is a 28 year old female Says was treated with 2 injections of PNC in [place] around 2008 Her test are still positive She is asymptomatic Obese 11/22/2013 Resolved Problems Problem Noted Date Diagnosed Date Resolved Date Hypothyroidism 11/22/2013 09/06/2024 Overview (11/22/2013): She was Dx in childhood, she stopped treatment a while ago, then was told did not have it??? Encounters Date Type Department Care Team Description 03/26/2025 Results Follow-Up [address] [phone] Jesús Menard FNP-C 03/21/2025 5:00 PM EDT Office Visit [address] [phone] Jesús Menard FNP-C Hernandez, Maria C 03/21/2025 10:00 AM EDT BH/MH Visits [address] [phone] Giovanni Young FNP Martinez, Celestia 03/04/2025 1:00 PM EDT Office Visit [address] [phone] Yonis Owusu, PharmLeeann 02/08/2025 2:40 PM EDT Office Visit [address] [phone] Jesús Menard FNP-C Martinez, Celestia 02/06/2025 3:00 PM EDT BH/MH Visits [address] [phone] Giovanni Young FNP Martinez, Celestia 02/05/2025 3:40 PM EDT Office Visit [address] [phone] Rizwan Ceron MD Rodriguez, Anabel 01/23/2025 2:00 PM EDT BH/MH Visits [address] [phone] Belinda Jensen, LUMBER SALES SUPERVISOR 01/04/2025 5:00 PM EDT Office Visit [address] [phone] Daniel Avalos PA-C 01/02/2025 3:40 PM EDT Office Visit [address] [phone] Rizwan Ceron MD Rodriguez, Anabel 01/02/2025 3:00 PM EDT BH/MH Visits [address] [phone] Belinda Jensen, LUMBER SALES SUPERVISOR 01/01/2025 Results Follow-Up [address] [phone] Adebayo Brock MD 01/01/2025 Results Follow-Up [address] [phone] Preston Tracey MD 12/28/2024 3:30 PM EDT BH/MH Visits [address] [phone] Belinda Jensen, LUMBER SALES SUPERVISOR 12/27/2024 Interim Notes [address] [phone] Adebayo Brock MD 12/26/2024 3:00 PM EDT BH/MH Visits [address] [phone] Giovanni Young FNP Martinez, Celestia from Last 3 Months Immunizations Immunization Administration Dates Next Due COVID-19,SARS-COV-2 VACCINE, UNSPECIFIED (US Admin) 10/18/2021 Flu, Preservative Free 10/21/2022 INFLUENZA, SEASONAL, INJECTA BLE, PRESERVATIVE FREE 05/03/2024 Moderna COVID-19 Vaccine, re d cap blue label, 12+ Primary Series 02/25/2022,12/17/2021,02/25/2021,2020 PNEUMOCOCCAL CONJUGATE PCV 2 0 (Prevnar 20) 10/15/2022 TDAP 10/15/2022 Family History Medical History [...] 16 03/21/2025 4:39 PM EDT Oxygen Saturation 98% 03/04/2025 1:06 PM EDT Inhaled Oxygen Concentration - - Weight 126.5 kg (278 lb 12.8 oz) 03/21/2025 4:39 PM EDT Height 160 cm (5' 3 ) 03/21/2025 4:39 PM EDT Body Mass Index 49.39 03/21/2025 4:39 PM EDT Plan of Treatment Upcoming Encounters Date Type Department Care Team ([facility] st Contact Info) Description 05/02/2025 10:40 AM EDT / Visits [address] [phone] Giovanni Young FNP [address] [place] [phone] Bruno Almanza [address] [place] [address] 05/08/2025 3:40 PM EDT Office Visit [address] [phone] Rizwan Ceron MD [address] [place] [phone] Marce Aguilar [address] [place] [address] Health Maintenance Due Date Last Done Comments HPV Screening 1984 Imm-Hepatitis B (1 of 3 - 19 + 3-dose series) 2003 Breast Cancer Screening (Mammogram) 11/17/2023 11/16/2022 [id number] ( season) 2024 02/25/2022, 12/17/2021, 10/18/2021, Additional history exists Imm-Influenza (#1) 2025 05/03/2024, 10/21/2022 Depression Monitoring 04/04/2025 01/02/2025 , 09/06/2024, 09/30/2023, Additional history exists Relationship Safety Screening/Counseling 05/17/2025 05/17/2024, 10/15/2022 Annual Wellness (Adult): Indicated (All Coverage) 09/06/2025 09/06/2024, 10/28/2022, 10/15/2022, Additional history exists Syphilis Screening 09/12/2025 09/12/2024, 0 10/15/2022, 10/15/2022, Additional history exists Pap Smear 10/27/2025 10/27/2022 Anxiety Screening 12/18/2025 12/18/2024 Tobacco Cessation Counseling (#1) 03/04/2026 05/27/2023, 10/15/2022, 11/30/2013 Diabetes Screening 03/21/2026 03/21/2025, 0 09/12/2024, 09/12/2024, Additional history exists Hypertension Screening (#1) 03/21/2026 Lipid Screening 03/21/2026 03/21/2025, 09/01, 10/15/2022, Additional history exists Cervical Cancer Screening 10/28/2027 Pap + HPV 10/28/2027 10/28/2022, 10/27/2022 Imm-DTaP/Tdap/Td (2 - Td or Tdap) 10/15/2032 023 HIV Screening Completed 10/15/2022, 11/26/2013 Hepatitis C Screening Completed 10/15/2022 , 02/19/2016, 11/26/2013 Imm-Pneumococcal Completed 10/15/2022 Alcohol and Drug Screen Completed 09/06/19, 09/30/2023, 10/15/2022 Cervical Ablation/Cold-Knife Conization Discontinued Cervical Cryotherapy Discontinued Colposcopy Discontinued Endometrial Biopsy Discontinued Excision/Leep Discontinued HPV Genotyping Discontinued Vaginal Pap Discontinued Vulvoscopy Discontinued Procedures Procedure Name Priority Date/Time Associated Diagnosis Comments LIPID PANEL Routine 03/21/2025 5:13 PM EDT Class 3 severe obesity due to excess calories without serious comorbidity with body mass index (BMI) of 45.0 to 49.9 in adult ([facility]) Encounter for weight management Pre-diabetes HEMOGLOBIN GLYCOSYLATED A1C Routine 03/21/2025 5:13 PM EDT Class 3 severe obesity due to excess calories without serious comorbidity with body mass index (BMI) of 45.0 to 49.9 in adult ([facility]) Encounter for weight management Pre-diabetes REFERRAL TO ORTHOPEDICS Routine 02/28/2025 3:00 AM EDT Numbness and tingling of leg Chronic bilateral low back pain with bilateral sciatica REFERRAL TO ORTHOPEDICS Routine 02/15/2025 3:00 AM EDT Chronic bilateral low back pain with bilateral sciatica REFERRAL SCANNED DOCUMENT 01/08/2025 3:[address] LUMBAR WO Routine 12/26/2024 8:28 PM EDT Abnormal x-ray of lumbar spine CT LUMBAR WO Urgent 12/26/2024 3:00 AM EDT Lesion of bone of lumbosacral spine OTHER ORDERS SCANNED DOCUMENT 12/25/2024 3:00 AM EDT RPR (MONITOR) W/REFL TITER Routine 09/12/2024 1:18 PM EST Routine general medical examination at a [facility] facility REFERRAL FOR MAMMOGRAM Routine 11/16/2022 [...] Recently Relevant to Health Maintenance Results * (ABNORMAL) HEMOGLOBIN GLYCOSYLATED A1C Routine (03/21/2025 5:13 PM EDT) HEMOGLOBIN A1C 5.7(H) <5.7 % 03/22/2025 4:52 AM EDT [facility] Blood Blood / Unknown 03/21/2025 5 :13 PM EDT 03/22/2025 3:23 AM EDT Narrative [facility] - 03/22/2025 4:55 AM EDT FASTING:NO For [...] for diagnosis of diabetes for children. . Jesús Menard RELIGION TEACHER-C LAB - BLOOD DRAW Final Re sult [facility] [address] [place] [address], [facility] [address] [place] [phone] * (ABNORMAL) LIPID PANEL Routine (03/21/2025 5:13 PM EDT) CHOLESTEROL, TOTAL 202(H) <200 mg/dL 03/22/2025 9:35 AM EDT [facility] HDL CHOLESTEROL 53 > OR = 50 mg/dL 03/22/2025 9:35 AM EDT [facility] TRIGLYCERIDES 177(H) <150 mg/dL 03/22/2025 9:35 AM EDT [facility] LDL-CHOLESTEROL 120(H) mg/dL (calc) 03/22/2025 9:35 AM EDT [facility] CHOL/HDLC RATIO 3.8 <5.0 (calc) 03/22/2025 9:35 AM EDT [facility] NON-HDL CHOLESTEROL 149(H) <130 mg/dL (calc) 03/22/2025 9:35 AM EDT [facility] Blood Blood / Unknown 03/21/2025 5 :13 PM EDT 03/22/2025 6:57 AM EDT Narrative [facility] - 03/22/2025 9:41 AM EDT FASTING:NO Reference range: <100 . Desirable range <100 mg/dL for primary prevention; <70 mg/dL for patients with CHD or diabetic patients with > or = 2 CHD risk factors. . LDL-C is now calculated using the Gurmeet-Lenin calculation, which is a validated novel method providing better accuracy than the Friedewald equation in the estimation of LDL-C. Gurmeet SS et al. SUE. 2013;310(19): 7143-5709 (http://education.Funji.Kingmaker/faq/KAK465) For patients with diabetes plus 1 major ASCVD risk factor, treating to a non-HDL-C goal of <100 mg/dL (LDL-C of <70 mg/dL) is considered a therapeutic option. Jesús MORAN-C LAB - BLOOD DRAW Final Re sult [facility] [address] [address], [facility] [address] [address] * REFERRAL TO ORTHOPEDICS (02/28/2025 3:00 AM EDT) Only the most recent of2 resultswithin the time period is included. 02/28/2025 3:00 AM EDT Radha Darline PA-C REFERRAL Final Resul t * REFERRAL SCANNED DOCUMENT (01/08/2025 3:00 AM EDT) 01/08/2025 3:00 AM EDT Jesús Menard RELIGION TEACHER-C SCAN REFERRAL Final Res ult * CT LUMBAR WO (12/26/2024 8:28 PM EDT) Only the most recent of2 resultswithin the time period is included. 12/26/2024 8:28 PM EDT Impressions [facility] - 12/28/2024 7:50 AM EDT IMPRESSION: 1.No fracture. Slight retrolisthesis of L5 on S1. 2.Disc space narrowing at L5-S1 with partial vacuum disc. 3.At L5-S1, awvp-uw-dnvwwvfh canal narrowing with at least moderate bilateral foraminal narrowing. 4.At remaining levels, canal and foraminal narrowing are mild/istg-yc-tyaqasis. 5.Consider MRI for further evaluation as clinically indicated. Leigh Ann Jamison MD Signed by Leigh Ann Jamison MD Read by: Dr. LEIGH ANN JAMISON M.D. Reviewed and Electronically Signed by: Dr. LEIGH ANN JAMISON M.D. Narrative [facility] - 12/28/2024 7:50 AM EDT Original Report PROCEDURE: CT SPINE LUMBAR without CONTRAST INDICATION: Low back pain for two years. TECHNIQUE: CT of the lumbar spine was performed without intravenous or intrathecal contrast. Sagittal and coronal reconstructions were generated. Automated mA/kV exposure control was utilized and patient examination was performed in strict accordance with principles of ALARA. RADIATION AMOUNT: 1077.70 mGy-cm. COMPARISON: None available. FINDINGS: Slight retrolisthesis of L5 on S1. There is no fracture or traumatic subluxation. The vertebral body heights are well maintained. Disc space narrowing at L5-S1 with partial vacuum disc. The paravertebral soft tissues are within normal limits. The visualized abdomen is unremarkable. Procedure Note Default, [facility] Provider - 12/28/2024 Original Report PROCEDURE: CT SPINE LUMBAR without CONTRAST INDICATION: Low back pain for two years. TECHNIQUE: CT of the lumbar spine was performed without intravenous or intrathecal contrast. Sagittal and coronal reconstructions were generated. Automated mA/kV exposure control was utilized and patient examination was performed in strict accordance with principles of ALARA. RADIATION AMOUNT: 1077.70 mGy-cm. COMPARISON: None available. FINDINGS: Slight retrolisthesis of L5 on S1. There is no fracture or traumatic subluxation. The vertebral body heights are well maintained. Disc space narrowing at L5-S1 with partial vacuum disc. The paravertebral soft tissues are within normal limits. The visualized abdomen is unremarkable. IMPRESSION: IMPRESSION: 1.No fracture. Slight retrolisthesis of L5 on S1. 2.Disc space narrowing at L5-S1 with partial vacuum disc. 3.At L5-S1, llno-um-xmwmlqcc canal narrowing with at least moderate bilateral foraminal narrowing. 4.At remaining levels, canal and foraminal narrowing are mild/uoug-jf-honfjwbp. 5.Consider MRI for further evaluation as clinically indicated. Leigh Ann Jamison MD Signed by Leigh Ann Jamison MD Read by: Dr. LEIGH ANN JAMISON M.D. Reviewed and Electronically Signed by: Dr. LEIGH ANN JAMISON M.D. Jesús Menard RELIGION TEACHER-C IMG CT Final Res ult [facility] Corporate Office [address], [address] [place] [address], * OTHER ORDERS SCANNED DOCUMENT (12/25/2024 3:00 AM EDT) 12/25/2024 3:00 AM EDT Jesús Sailaja RELIGION TEACHER-C SCAN OTHER ORDERS Final R esult * RPR (MONITOR) W/REFL TITER (09/12/2024 1:18 PM EST) RPR (MONITOR) W/REFL TITER NON-REACT SHALINI NON-REACT SHALINI [facility] Blood Blood / Unknown 09/12/2024 1 :18 PM EST 09/12/2024 1:18 PM EST [place] Sailaja RELIGION TEACHER-C LAB - BLOOD DRAW Final Re sult [facility] [address] [place] [address], [facility] [address] [place] [phone] * Mammogram screening (11/16/2022 3:00 AM EDT) 11/16/2022 3:00 AM EDT Adebayo Brock MD IMG RFL MAMMO Edited Result - Final * THINPREP PAP & HPV MRNA E6/E7 RFLX HPV 16,18/[address]/NG (10/27/2022 8:00 PM EDT) CHLAMYDIA TRACHOMATIS RNA, TMA NOT DETECTED NOT DETECTED [facility] NEISSERIA GONORRHOEAE RNA, TMA NOT DETECTED NOT DETECTED [facility] COMMENT [facility] CLINICAL INFORMATION See Note [facility] Comment:Routine exam LMP See Note [facility] Comment:10/06/22 PREV. PAP See Note [facility] Comment:NONE GIVEN PREV. BX See Note [facility] Comment:NONE GIVEN SOURCE See Note [facility] Comment:Cervix STATEMENT OF ADEQUACY See Note [facility] Comment: Satisfactory for evaluation. Endocervical/transformation zone component absent. INTERPRETATION/RESU LT See Note [facility] Comment:Negative for intraep ithelial lesion or malignancy. INFECTION See Note [facility] Comment: Shift in vaginal kobe suggestive of bacterial vaginosis. RETURN TO VENDOR See Note [facility] Comment: KR, CT(ASCP) CT screening location: [address] [address] COMMENT [facility] HPV MRNA E6/E7 Not Detected Not Detected [facility] Comment: Methodology: Kelp Gatherer-Mediated Amplification This assay detects E6/E7 viral messenger RNA (mRNA) from 14 high-risk HPV types (16,18,31,33,35,39,45,51,52,56,58,59,66,68). Cervical sources are required for HPV testing. If a vaginal source from a patient who has had a total hysterectomy with removal of cervix was submitted, please contact the testing laboratory for alternative testing options. For additional information, please refer to http://[email or web address].Designlab/faq/DYG234h7 (This link if provided for information/ educational purposes only.) CYTOLOGY Cervix uteri structure / Unknown 10/27/2022 8:00 PM EDT 10/29/2022 11:46 AM EDT Narrative [facility] - 11/02/2022 3:20 PM EDT EXPLANATORY NOTE: [...] test SurePath(TM) specimens have been determined by [facility]. The modifications have not been cleared or approved by the FDA. This assay has been validated pursuant to the CLIA regulations and is used for clinical purposes. For additional information, please refer to https://education.Designlab/faq/VID121 (This link is being provided for information/ educational purposes only.) Adebayo Brock MD LAB - PATHOLOGY AND CYTOLOGY AMB ULATORY Final Result [facility] [address] [address], [facility] [address] [address] * Hep C Antibody with Reflex HCV RNA (10/15/2022 3:27 PM EDT) HEPATITIS C ANTIBODY NON-REACT SHALINI NON-REACT SHALINI [facility] SIGNAL TO CUT-OFF 0.04 <1.00 [facility] Comment: HCV antibody was non-reactive. There is no laboratory evidence of HCV infection. In most cases, no further action is required. However, if recent HCV exposure is suspected, a test for HCV RNA (test code 89342) is suggested. For additional information please refer to http://[employer].Designlab/faq/GKR84q4 (This link is being provided for informational/ educational purposes only.) Blood Blood / Unknown 10/15/2022 3 :27 PM EDT 10/15/2022 3:28 PM EDT Jesús Menard RELIGION TEACHER-C LAB - BLOOD DRAW Edited R esult - Final [facility] [address] [address], [facility] [address] [address] * HIV 1/2 AG & AB W/RFLX (4TH GEN) (10/15/2022 3:27 PM EDT) HIV AG/AB, 4TH GEN NON-REAC TIVE NON-REAC TIVE [employer] [facility] Comment: HIV-1 antigen and HIV-1/HIV-2 antibodies were not detected. There is no laboratory evidence of HIV infection. PLEASE NOTE: This information has been disclosed to you from records whose confidentiality may be protected by state law. If your state requires such protection, then the state law prohibits you from making any further disclosure of the information without the specific written consent of the person to whom it pertains, or as otherwise permitted by law. A general authorization for the release of medical or other information is NOT sufficient for this purpose. For additional information please refer to [email or web address]/RWN162 (This link is being provided for informational/ educational purposes only.) The performance of this assay has not been clinically validated in patients less than 2 years old. Blood Blood / Unknown 10/15/2022 3 :27 PM EDT 10/15/2022 3:28 PM EDT Jesús ROMOP-C LAB - BLOOD DRAW Final Re sult [facility] [address] [address], [facility] [address] [place] [address] from Last 3 Months or Most Recently Relevant to Health Maintenance Insurance [place] Care Teams Ball Points Inspector Relationship Specialty Start Date End Date Jesús Menard FNP-C [address] [place] [address] PCP - General Internal Medicine 11/02/22
== END 2025-03-26 14:39 | disposition home or self-care (01) ==
PROVIDERS: Emergency Provider Emergency Medicine; PCP Dentist General Practice
DX: L23.9 Allergic contact dermatitis, unspecified cause (principal); R21 Rash and other nonspecific skin eruption
CPT/HCPCS: 99282

== ENCOUNTER 2025-04-23 12:29 | Emergency (ER) | payer MEDICAID, SELFPAY ==
--- NOTE | ~2025-04-23 | XR_ITS ---
EXAMINATION: XR CHEST CLINICAL INFORMATION: cough COMPARISON: October 11, 2024 TECHNIQUE: 2 views of the chest were obtained. FINDINGS: No significant abnormality is noted involving the heart, lungs, mediastinum, bony thorax or soft tissues. XR/XR chest 2V IMPRESSION: No acute disease Electronically signed by: Vincent Bull MD 04/23/2025 12:53 PM EDT RP
--- NOTE | 2025-04-23 12:35 | ED.GENADULT ---
HPI - General Adult General Chief complaint: Upper Respiratory Symptoms Stated complaint: cough asthma Time Seen by Provider: 04/23/25 15:07 Source: patient and seismic interpreter Mode of arrival: ambulatory Limitations: language barrier History of Present Illness ED Provider: Carolyn Bacon PA-C HPI narrative: This is a 40-year-old female who presents emergency department with complaints of shortness for breath and wheezing for the last 2 days. She states that her asthma has been exacerbated. She denies any chest pain, shortness for breath, fevers, chills, abdominal pain, nausea, vomiting or diarrhea. She states that she has been on courses of prednisone recently for allergic reactions this past month, but she denies that she is currently on prednisone at this time. No other complaints or concerns at this time. MD complaint: Shortness for breath, wheezing Related Data Previous Rx's ?Medication ?Instructions ?Recorded albuterol sulfate 90 mcg/actuation 2 puff inhalation Q4-6H PRN 10/04/22 aerosol inhaler shortness of breath or wheezing #8.5 grams azithromycin 250 mg tablet 250 mg PO DAILY 4 days #4 tabs 10/04/22 prednisone 20 mg tablet 20 mg PO DAILY #5 tabs 10/04/22 cyclobenzaprine 5 mg tablet 5 mg PO TID PRN muscle spasm 7 02/08/23 days #21 tabs prednisone 20 mg tablet 20 mg PO DAILY 7 days #7 tabs 02/08/23 hydroxyzine HCl 25 mg tablet 25 mg PO QID PRN anxiety 7 days 10/11/24 #28 tabs prednisone 20 mg tablet 40 mg (2 x 20 mg) PO DAILY 5 days 10/11/24 #10 tabs diphenhydramine HCl 25 mg capsule 25 mg PO TID PRN itching #21 caps 03/26/25 (Benadryl) famotidine 20 mg tablet (Pepcid AC) 20 mg PO BID 5 days #10 tabs 03/26/25 hydrocortisone 1 % topical cream 1 appl topical BID PRN rash 2 03/26/25 weeks #28.4 grams prednisone 20 mg tablet 40 mg (2 x 20 mg) PO DAILY 5 days 03/26/25 #10 tabs prednisone 20 mg tablet 40 mg (2 x 20 mg) PO DAILY 5 days 04/23/25 #10 tabs Allergies Allergy/AdvReac Type Severity Reaction Status Date / Time No Known Allergies Allergy Verified 04/23/25 12:42 Review of Systems Review of Systems: Constitutional : No Fever, No Chills ENT/Mouth : No sore throat, No Rhinorrhea Eyes: No Eye Pain, No Swelling, No Redness Cardiovascular : No Chest Pain, + SOB Respiratory : No Cough, No Sputum Gastrointestinal : No Nausea, No Vomiting, No Diarrhea, No abdominal Pain Genitourinary : No Dysuria, No Hematuria Musculoskeletal : No joint pain, No Myalgias, No Joint Swelling Skin : No Skin Lesions Neuro : No Weakness, No Numbness, No Headache All other systems reviewed and are negative Yes all other systems are reviewed and are negative Constitutional: Constitutional: Reports as per [facility] Social History Social History Advance Directives: No Advance Directives Information Provided: Yes Do you have a plan to hurt others: No Plan Physical Exam ED Vital Signs: Vital Signs - 24 hr 04/23/25 12:39 04/23/25 15:09 04/23/25 16:46 Temperature 97.4 F Pulse Rate 95 95 86 Respiratory Rate 22 H 18 19 Blood Pressure 133/86 113/79 Pulse Oximetry 93 98 Oxygen Delivery Method Room Air Room Air 04/23/25 17:12 Temperature Pulse Rate 86 Respiratory Rate 18 Blood Pressure Pulse Oximetry Oxygen Delivery Method BMI result Body Mass Index 47.4 Const General: cooperative, comfortable and no acute distress Orientation/consciousness: patient oriented x3 Limitations: no limitations [facility] Head: Yes normal to inspection, Yes normocephalic and Yes atraumatic Ears: hearing grossly normal bilaterally General nose exam: Normal external nose present Face and sinus: Yes normal facial exam Mouth: Normal oral and palatal mucosa present, oropharynx normal and moist mucous membranes Throat: Yes posterior oropharynx normal Eyes General: appearance normal, both eyes and all related structures Eyelids: Yes eyelids normal Conjunctivae: conjunctivae normal Sclerae: sclerae normal Pupils: Equal, round and reactive pupils present EOM: EOMs intact bilaterally Neck Neck: Yes normal visual inspection, Yes full ROM and Yes no lymphadenopathy Lymphatic: no lymphadenopathy noted Chest Chest palpation & inspection: normal inspection of the chest Resp Other: Lungs with inspiratory and expiratory wheezes noted throughout all lung barron. Effort & Inspection: normal respiratory effort and able to speak in complete sentences Cardio Rate: regular rate Rhythm: regular rhythm Heart sounds: S1 normal heart sound present and S2 normal heart sound present GI Inspection: Yes normal to inspection Skin General skin exam: no rashes or lesions noted Trauma: no lacerations or abrasions Wounds: no wounds Neuro General: patient oriented x3 and moves all extremities Cranial nerves: Yes Equal, round and reactive pupils present Extrem General: Yes normal to inspection Right upper extremity: normal to inspection Left upper extremity: normal to inspection Right lower extremity: normal to inspection Left lower extremity: normal to inspection Course Course Course Narrative: This is a Rapid Medical Examination (RME) performed by Alba Mclaughlin PA-C in triage. Full HPI, ROS, assessment and treatment plan per primary provider in the Main ED. Hx: 40 yo F hx asthma here for eval difficulty breathing and cough x5 days. Using rescue inhaler at home without improvement. PE/vitals: Bronchospastic cough, no tripoding, no respiratory distress, coarse inspiratory and expiratory wheezes Plan: viral swabs, cxr, ed bronch protocol Medications Administered Discontinued Medications Generic Name Dose Route Start Last Admin Trade Name Freq PRN Reason Stop Dose Admin Albuterol Sulfate 2.5 mg/ 5 mg 04/23/25 17:12 04/23/25 17:19 Albuterol Sulfate 2.5 mg INHALE 04/23/25 17:13 5 mg ONCE ONE Administration Albuterol Sulfate 2.5 mg/ 0 mg 04/23/25 15:09 04/23/25 15:16 Albuterol/Ipratropium 3 ml INHALE 04/23/25 15:10 5 dose ONCE ONE Administration Magnesium Sulfate 2 gm in 50 mls @ 150 mls/hr 04/23/25 17:03 04/23/25 17:23 Magnesium Sulfate/H2o IV 04/23/25 17:22 150 mls/hr ONCE ONE Administration Methylprednisolone Sodium Succinate 60 mg 04/23/25 16:04 04/23/25 16:12 Methylprednisolone Sod Succ 125 Mg/2 Ml Vial IVPUSH 04/23/25 16:05 60 mg ONCE ONE Administration Medical Decision Making Medical Decision Making [facility] Narrative: This is a 40-year-old female who presents emergency department concerns of shortness for breath for the last 2 days. She feels as though her asthma exit been exacerbated. Lungs with inspiratory and expiratory wheezes noted throughout all lung barron. Chest x-ray was performed, no pneumonia seen. Negative COVID and flu. Will obtain basic labs, and treat with dose of Solu-Medrol, magnesium, and will observe pending symptomatic improvement Patient feeling much better after receiving IV Solu-Medrol, IV magnesium, and multiple updrafts. Walking O2 sat was performed, maintained at 93%. She feels comfortable with discharge home. Given strict return precautions. She understands and agrees with plan. Patient stable for discharge. Differential Diagnosis Differential Diagnoses: The differential diagnosis associated with the presentation includes Asthma exacerbation, URI, COVID, flu Admission/Observation Consideration of admission/observation: Escalation of care including admission/observation considered Lab Data MDM Lab Attestation statement: I reviewed the patient's lab results. Slightly leukocytosis likely reactive due to recent prednisone rx, CHEM wnl, no significant electrolyte abnormalities. 04/23/25 16:00 04/23/25 16:00 Labs: Lab Results 04/23/25 04/23/25 Range/Units 12:49 16:00 WBC 16.6 H (4.8-10.8) X10*3/uL RBC 4.92 (4.20-5.50) X10*6/uL Hgb 13.9 (12.0-16.0) g/dl Hct 42.0 (37.0-47.0) % MCV 85.4 (80.0-98.0) fL MCH 28.3 (27.0-33.0) pg MCHC 33.1 (31.0-35.0) g/dl RDW 13.3 (11.0-16.0) % Plt Count 438 H (160-400) X10*3/uL MPV 8.7 L (9.4-12.3) fL Immature Gran % (Auto) Cancelled Neut % (Auto) Cancelled Lymph % (Auto) Cancelled [place] % (Auto) Cancelled Eos % (Auto) Cancelled Baso % (Auto) Cancelled Lymph # (Auto) Cancelled [place] # (Auto) Cancelled Eos # (Auto) Cancelled Baso # (Auto) Cancelled Abs Immat Gran (auto) Cancelled Absolute Neuts (auto) Cancelled Absolute Nucleated RBC 0.000 (0.0-0.012) X10*3/uL Nucleated RBC % (auto) 0.0 (0.0-0.2) /100WBC Neutrophils % (Manual) 56 (45-73) % Band Neutrophils % 1 L (3-5) % Lymphocytes % (Manual) 35 (20-40) % Atypical Lymphs % (Man) 6 (0-6) % Monocytes % (Manual) 2 (2-11) % Abs Neuts (Manual) 9.5 H (2.0-8.3) X10*3/uL Lymphocytes # (Manual) 5.8 H (1.2-4.9) X10*3/uL Atyp Lymphs # (Manual) 1.0 x10*3/uL Monocytes # (Manual) 0.3 (0.1-1.2) X10*3/uL Platelet Estimate NORMAL (NORMAL) Plt Morphology Comment NORMAL RBC Morphology NOTED Macrocytosis 1+ (5-14) /OIF Ward Cells 3+ (>5) /OIF Smear Tech's Comments MANUAL DIFF Sodium 138 (135-145) mmol/L Potassium 3.8 (3.3-5.1) mmol/L Chloride 107 (96-108) mmol/L Carbon Dioxide 23 (22-29) mmol/L Anion Gap 12 (12-20) BUN 11 (9-16) mg/dL Creatinine 0.67 (0.5-1.4) mg/dL Estim Creat Clear Calc 144.6 Estimated GFR > 60 Random Glucose 91 (60-115) mg/dL Calcium 9.7 D (8.4-10.2) mg/dL Magnesium 2.0 (1.6-2.6) mg/dL Total Bilirubin 0.4 (0.0-1.0) mg/dL AST 24 (5-31) U/L ALT 16 (0-31) U/L Alkaline Phosphatase 82 (39-117) U/L Total Protein 7.6 (6.5-8.0) g/dL Albumin 4.5 (3.5-5.0) g/dL Hold Green Top See Note COVID-19 (SAILAJA) Negative (Negative) COVID-19 Clin Com See Note Influenza Type A (BRAYAN) Negative (Negative) Influenza Type B (BRAYAN) Negative (Negative) Influenza A & B Note See Note Radiology Impression Discussion of test interpretation with radiology: I have reviewed the radiologist's reading. Radiologist Impression: TECHNIQUE: 2 views of the chest were obtained. FINDINGS: No significant abnormality is noted involving the heart, lungs, mediastinum, bony thorax or soft tissues. XR/XR chest 2V IMPRESSION: No acute disease Electronically signed by: Vincent Bull MD 04/23/2025 12:53 PM EDT RP Dictated By: Vincent Bull MD Discharge Plan Discharge Clinical Impression: Asthma exacerbation Patient Disposition: Home, Self-Care Instructions: Asthma (ED), Wheezing (ED) Additional Instructions: You were seen in the emergency department due to worsening asthma. Please take prescribed prednisone as directed, finish the entire course even if your symptoms improve. Start this tomorrow as you already received a dose today. Drink plenty of fluids get plenty of rest. Use albuterol inhaler as directed. Call your primary care physician tomorrow to make an appointment. If any new or worsening symptoms occur including but not limited to severe chest pain, shortness for breath, please seek emergent care. Prescriptions: New prednisone 20 mg tablet 40 mg PO DAILY 5 Days Qty: 10 0RF Rx Instructions: start 04/24 No Action albuterol sulfate 90 mcg/actuation HFA aerosol inhaler 2 puff inhalation Q4-6H PRN (Reason: shortness of breath or wheezing) Qty: 8.5 0RF azithromycin 250 mg tablet 250 mg PO DAILY 4 Days Qty: 4 0RF Rx Instructions: start on day 2 of therapy prednisone 20 mg tablet 20 mg PO DAILY Qty: 5 0RF hydroxyzine HCl 25 mg tablet 25 mg PO QID PRN (Reason: anxiety) 7 Days Qty: 28 0RF prednisone 20 mg tablet 40 mg PO DAILY 5 Days Qty: 10 0RF diphenhydramine HCl [Benadryl] 25 mg capsule 25 mg PO TID PRN (Reason: itching) Qty: 21 0RF prednisone 20 mg tablet 40 mg PO DAILY 5 Days Qty: 10 0RF famotidine [Pepcid AC] 20 mg tablet 20 mg PO BID 5 Days Qty: 10 0RF hydrocortisone 1 % cream 1 appl topical BID PRN (Reason: rash) 14 Days Qty: 28.4 0RF prednisone 20 mg tablet 20 mg PO DAILY 7 Days Qty: 7 0RF cyclobenzaprine 5 mg tablet 5 mg PO TID PRN (Reason: muscle spasm) 7 Days Qty: 21 0RF Interventions: ED Discharge Assessment Last Done: 04/23/25 19:14 Discharge Date/Time: 04/23/25 19:16 Print Language: Arabic
[2025-04-23 12:39] VITALS: BP 133/86; PULSE 95; RESP 22; TEMP 36.3; O2SAT 93; BMI 47.4
[2025-04-23 13:20] LABS: IDNOW Serial# 55D5AD1C; Influenza B2 Negative (Negative)
[2025-04-23 13:21] LABS: COVID-19 Test Negative (Negative); IDNOW Serial# 6674DD1D
[2025-04-23 15:09] VITALS: PULSE 95; RESP 18; O2SAT 94
[2025-04-23] MEDS: Albuterol Sulfate 2.5 MG, Albuterol/Iprat 2.5/0.5MG 3 ML 3 ML INHALE (15:16)
[2025-04-23 16:21] LABS: Hematocrit 42.0 % (37.0-47.0); Hemoglobin 13.9 g/dl (12.0-16.0); Mean Corpuscular HGB Conc 33.1 g/dl (31.0-35.0); Mean Corpuscular Hemoglobin 28.3 pg (27.0-33.0); Mean Corpuscular Volume 85.4 fL (80.0-98.0); NRBC Abs Auto 0.000 X10*3/uL (0.0-0.012); NRBC Pct Auto 0.0 /100WBC (0.0-0.2); Platelet Count 438 X10*3/uL (160-400); Red Blood Count 4.92 X10*6/uL (4.20-5.50); White Blood Count 16.6 X10*3/uL (4.8-10.8)
[2025-04-23 16:37] LABS: Alanine Aminotransferase 16 U/L (0-31); Albumin Level 4.5 g/dL (3.5-5.0); Alkaline Phosphatase 82 U/L (39-117); Anion Gap 12 (12-20); Aspartate Amino Transferase 24 U/L (5-31); Blood Urea Nitrogen 11 mg/dL (9-16); Calcium 9.7 mg/dL (8.4-10.2); Carbon Dioxide 23 mmol/L (22-29); Chloride 107 mmol/L (96-108); Creatinine Clr Calc Pharmacy 144.6; Estimated Glomerular Filt Rate > 60; Magnesium 2.0 mg/dL (1.6-2.6); Potassium 3.8 mmol/L (3.3-5.1); Sodium 138 mmol/L (135-145); Total Protein 7.6 g/dL (6.5-8.0)
[2025-04-23 16:46] VITALS: BP 113/79; PULSE 86; RESP 19; O2SAT 98
[2025-04-23 17:11] LABS: Atypical Lymph Absolute Manual 1.0 x10*3/uL; Atypical Lymphs Percent Manual 6 % (0-6); Band Neutrophils Percent 1 % (3-5); Lymphocytes Absolute Manual 5.8 X10*3/uL (1.2-4.9); Lymphocytes Percent Manual 35 % (20-40); Monocytes Absolute Manual 0.3 X10*3/uL (0.1-1.2); Monocytes Percent Manual 2 % (2-11); Neutrophils Absolute Manual 9.5 X10*3/uL (2.0-8.3); Neutrophils Percent Manual 56 % (45-73)
[2025-04-23 17:12] VITALS: PULSE 86; RESP 18; O2SAT 98
[2025-04-23 17:12] LABS: Burr Cells 3+ (>5) /OIF; Macrocytosis 1+ (5-14) /OIF; RBC Morphology NOTED
[2025-04-23] MEDS: Albuterol Sulfate 2.5 MG, Albuterol Sulfate (0.083%) 2.5 MG 5 MG INHALE (17:19)
[2025-04-23] MEDS: Magnesium Sulfate/H2O 2 GM/50 ML PIGGYBACK IV (17:23)
--- OUTSIDE RECORDS SUMMARY | 2025-04-23 18:10 | XMS_ITS | Clinical Summary ---
Author Organization [facility] Address [address] [place] [address] Care Team Providers Care Medical Delivery Technician Name Role Phone Unavailable Primary Care Provider Unavailabl e Encounters Date Type Department Care Team Description 02/19/2025 Population Health [facility] Department [address] [facility] [address] [place] [address] Provider, Population Health Generic from [...] 2005 Cervical Cancer Screening 2014 HPV/Cotest 2014 Mammogram 2024 COVID-19 Vaccine ( season) 2025 02/25/2022, 12/17/2021, 10/18/2021, Additional history exists Influenza Vaccine (#1) 2025 05/03/2024, 2022 DTaP/Tdap/Td [...]
--- OUTSIDE RECORDS SUMMARY | 2025-04-23 18:10 | XMS_ITS | Clinical Summary ---
Author Organization [facility] Address [address] [place] [address] Phone Care Team Providers Care Cardiopulmonary Technician And Eeg Tech Name Role Phone Jesús Menard SCIENCE AND OPERATIONS OFFICER Primary Care Provider Social History Tobacco Use Types Packs/Day Years Used Date Smoking Tobacco: Never Assessed Comments Unknown Sex and Gender Information Value Date Recorded Sex Assigned at Not on file Legal Sex Female 2:47 PM EDT Gender Identity Not on file Sexual Orientation Not on file Plan of Treatment Upcoming Encounters Date Type Department Care Team ([facility] st Contact Info) Description 05/02/2025 10:30 AM EDT Consult Orthopedic Surgery - [place] [address] [phone] Francisco Hendrix, DPM [address] [phone] Health Maintenance Due Date Last Done Comments Breast Cancer Screening 1984 Hepatitis B Vaccines (1 of 3 - 19+ 3-dose series) 2003 Cervical Cancer Screening: Pap Smear 2005 HIV Screening 05/23/2024 Social Influencers of Health Screening 05/23/2024 Depression Screening 08/01/2024 COVID-19 Vaccine ( season) 2025 02/25/2022, 12/17/2021, 10/18/2021, Additional history exists Influenza Vaccine (#1) 2025 10/21/2022 Cholesterol Screening [...] topic Insurance MEDICAID - [place] Care Teams Cardiopulmonary Technician And Eeg Tech Relationship Specialty Start Date End Date Jesús Menard FNP [address] [place] [phone] PCP - General Family Medicine 02/13/25
--- NOTE | 2025-04-23 18:56 | PC.NURSE ---
ambulating pulse ox obtained, patient denies any distress - reports improvement with her breathing. oxygen between 92-94%.
[2025-04-23 19:14] VITALS: BP 130/86; PULSE 86; RESP 18; TEMP 36.8; O2SAT 95
== END 2025-04-23 19:16 | disposition home or self-care (01) ==
PROVIDERS: Physician Assistant Medical; Emergency Provider Emergency Medicine; PCP Dentist General Practice
DX: J45.901 Unspecified asthma with (acute) exacerbation (principal); Z79.51 Long term (current) use of inhaled steroids; D72.829 Elevated white blood cell count, unspecified
CPT/HCPCS: 36415; 71046; 80053; 83735; 85007; 85025; 85027; 87502; 87635; 94640; 99284; J2919; J3475

== ENCOUNTER → 2025-04-23 12:39 | Outpatient (BNV) | payer MEDICAID, SELFPAY | PROVIDERS: Visit Provider Radiology Diagnostic Radiology | DX: R05.9 Cough, unspecified (principal) | CPT/HCPCS: 71046 ==